=== PATIENT | male | born 1940 ===

== ENCOUNTER 2016-07-11 10:19 | Inpatient (IN) | payer MEDICARE, OTHER ==
[2016-07-11 11:23] LABS: RBC URINE 4 /hpf (0-3); URINE BACTERIA RARE (<OCC); URINE BILIRUBIN NEGATIVE (NEGATIVE); URINE BLOOD 1+ (NEGATIVE); URINE COLOR Amber (YELLOW); URINE GLUCOSE (UA) NORMAL (Normal); URINE KETONE NEGATIVE (NEGATIVE); URINE LEUKOCYTE ESTERASE 3+ Leu/uL (Negative); URINE PROTEIN 1+ mg/dL (NEGATIVE); WBC URINE 289 /hpf (0-5)
[2016-07-11] MEDS ORDERED: cefTRIAXone IV 1 gm in Dextros 50 ML IV ONE (11:27)
--- NOTE | 2016-07-11 11:45 | RAD ---
PROCEDURE: CHEST RADIOGRAPH, 1 VIEW HISTORY: Abdominal pain COMPARISON: None available. FINDINGS: LUNGS: Mild venous congestion. Patchy increased markings at the left lung base. Right paratracheal opacity may represent prominent vasculature. Biapical pleural thickening with upper lobe granulomatous changes. Few small nodular densities in the left upper to mid lung zone may represent vessels on end. PLEURA: No pneumothorax or pleural fluid seen. CARDIOVASCULAR: Normal. OSSEOUS STRUCTURES: No significant abnormalities. VISUALIZED UPPER ABDOMEN: Normal. OTHER FINDINGS: None. IMPRESSION: Mild venous congestion. Patchy increased markings at the left lung base. Right paratracheal opacity may represent prominent vasculature. Biapical pleural thickening with upper lobe granulomatous changes. Few small nodular densities in the left upper to mid lung zone may represent vessels on end.
[2016-07-11 12:01] LABS: BASO % 0.2 % (0.0-2.0); HEMATOCRIT 43.9 % (35.0-51.0); LYMPH # 1.3 K/uL (1.0-4.3); LYMPH % 7.8 % (20.0-40.0); MEAN CELL VOLUME 99.4 fL (80.0-94.0); MEAN CORPUSCULAR HEMOGLOBIN 32.8 pg (27.0-31.0); MEAN PLATELET VOLUME 11.1 fL (7.2-11.7); MONO # 0.9 K/uL (0.0-0.8); MONO % 5.5 % (0.0-10.0); PLATELET COUNT 159 K/uL (130-400); RED CELL DISTRIBUTION WIDTH 13.7 % (11.5-14.5); WHITE BLOOD COUNT 16.1 K/uL (4.8-10.8)
[2016-07-11 12:07] LABS: POTASSIUM 4.7 mmol/L (3.6-5.2)
[2016-07-11 12:09] LABS: ALB/GLOB RATIO 0.9 (1.0-2.1); BILIRUBIN,TOTAL 2.4 mg/dL (0.2-1.3); TOTAL PROTEIN 8.3 g/dL (6.3-8.3)
--- NOTE | 2016-07-11 12:09 | C.PDOC ---
History Of Present Illness 75 yr old male presents to the ER with complaints of foul smelling urine and fever for the last week. Patient states today he was unable to walk due to weakness. Patient denies fever, chills, nausea, vomiting, abdominal pain, diarrhea, dysuria, weakness or numbness. Time Seen by Provider: 07/11/16 11:02 Chief Complaint (Nursing): Male Genitourinary History Per: Patient History/Exam Limitations: no limitations Onset/Duration Of Symptoms: Days (1 week) Current Symptoms Are (Timing): Still Present Past Medical History Reviewed: Historical Data, Nursing Documentation, Vital Signs Vital Signs: Last Vital Signs Temp 98.1 F 07/11/16 10:22 Pulse 91 H 07/11/16 10:22 Resp 18 07/11/16 10:22 BP 121/70 07/11/16 10:22 Pulse Ox 96 07/11/16 12:11 - Medical History PMH: HTN, Hyperlipidemia Family History: States: No Known Family Hx - Social History Hx Alcohol Use: Yes Hx Substance Use: No - Immunization History Hx Tetanus Toxoid Vaccination: No Hx Influenza Vaccination: No Hx Pneumococcal Vaccination: No Review Of Systems Except As Marked, All Systems Reviewed And Found Negative. Constitutional: Negative for: Fever, Chills Gastrointestinal: Negative for: Nausea, Vomiting, Abdominal Pain, Diarrhea Genitourinary: Positive for: Other ((+) Foul smelling urine). Negative for: Dysuria Neurological: Negative for: Weakness, Numbness Physical Exam - Physical Exam Appears: Well, Non-toxic, No Acute Distress Skin: Warm, Dry, No Rash Head: Atraumatic, Normacephalic Oral Mucosa: Dry Chest: Symmetrical, No Tenderness Cardiovascular: Rhythm Regular, No Murmur Gastrointestinal/Abdominal: Normal Exam, Soft, No Tenderness, No Guarding Back: Normal Inspection, No CVA Tenderness Extremity: Normal ROM, No Swelling Neurological/Psych: Oriented x3, Normal Speech, Normal Motor ED Course And Treatment - Laboratory Results Result Diagrams: 07/11/16 11:52 07/11/16 11:52 Lab Interpretation: Abnormal (UA, 289 WBC's, lipase 484 H) ECG: Interpreted By Me ECG Rhythm: Sinus Rhythm, R BBB ECG Interpretation: Normal Rate From EC O2 Sat by Pulse Oximetry: 96 - Radiology CXR: Interpreted by Me CXR Interpretation: Yes: No Acute Disease - Other Rad CXR X-Ray: Viewed By Me, Read By Radiologist Interpretation: PROCEDURE: CHEST RADIOGRAPH, 1 VIEW. HISTORY: Abdominal pain. COMPARISON: None available. FINDINGS: LUNGS: Mild venous congestion. Patchy increased markings at the left lung base. Right paratracheal opacity may represent prominent vasculature. Biapical pleural thickening with upper lobe granulomatous changes. Few small nodular densities in the left upper to mid lung zone may represent vessels on end. PLEURA: No pneumothorax or pleural fluid seen. CARDIOVASCULAR: Normal. OSSEOUS STRUCTURES: No significant abnormalities. VISUALIZED UPPER ABDOMEN: Normal. OTHER FINDINGS: None. IMPRESSION: Mild venous congestion. Patchy increased markings at the left lung base. Right paratracheal opacity may represent prominent vasculature. Biapical pleural thickening with upper lobe granulomatous changes. Few small nodular densities in the left upper to mid lung zone may represent vessels on end. Reevaluation Time: 12:32 Reassessment Condition: Improved - Physician Consult Information Outcome Of Conversation: 1230: dw Dr. Flores- HOspitalist covering pt's for Dr. Kesha Pastrana- ok to Obs. Medical Decision Making Medical Decision Making: PLAN: * CXR * EKG * CBC * Urinalysis * Rocephin IV Disposition Doctor Will See Patient In The: Hospital Counseled Patient/Family Regarding: Studies Performed, Diagnosis - Disposition Disposition: HOSPITALIZED Disposition Time: 12:33 Condition: GOOD - Clinical Impression Clinical Impression: Pyelonephritis - Scribe Statement The provider has reviewed the documentation as recorded by the Lisa Paris Provider Attestation: All medical record entries made by the Lisa were at my direction and personally dictated by me. I have reviewed the chart and agree that the record accurately reflects my personal performance of the history, physical exam, medical decision making, and the department course for this patient. I have also personally directed, reviewed, and agree with the discharge instructions and disposition.
[2016-07-11 12:10] LABS: CALCIUM 9.6 mg/dl (8.6-10.4)
[2016-07-11] MEDS ORDERED: Sodium Chloride 0.9% 1,000 ML IV ONE (12:22)
[2016-07-11] MEDS ORDERED: cefTRIAXone IV 1 gm in Dextros 50 ML IVPB ONE (12:41)
[2016-07-11 12:56] LABS: BASOPHIL 1 % (0-2); NEUTROPHIL 79 % (50-75); TOTAL CELLS COUNTED 100
[2016-07-11 12:57] LABS: LARGE PLATELETS PRESENT
[2016-07-11] MEDS ORDERED: Sodium Chloride 0.9% 1,000 ML IV SCH (14:30)
[2016-07-11] MEDS: Sodium Chloride 0.9% 1,000 ML IV SCH (14:51)
[2016-07-11] MEDS ORDERED: (Novolog) Insulin Aspart, Recombinant 100 u/ml 10 ml vial SC SCH (16:30)
--- NOTE | 2016-07-11 18:32 | CP.PCM.HP ---
<Valeria Vail - Last Filed: 07/11/16 18:29> History of Present Illness - History of Present Illness History of Present Illness: CC: "increased urinary frequency and fever" HPI: Patient is a 75 year old male with past medical history of hypertension , hyperlipidemia, and diabetes mellitus who presents to the ED with dysuria and fever. Patient states symptoms started 1 week ago and include dysuria, foul smelling urine, increased urgency and frequency, fever/chills, and nausea/ vomiting. Patient states fever fluctuated, highest of 103F. Patient states he took acetaminophen for fever which provided relief. Patient states he has been nauseous all week and has had clear liquid emesis every morning for past week. Last vomiting episode was yesterday. Patient states he has been feeling progressively weak over the past 7 days, unable to walk for more than a few minutes at a time. Patient complains of decreased appetite over the same time span. Patient denies headache, dizziness, vision change, shortness of breath, palpitations, chest pain, abdominal pain, hematuria, constipation, diarrhea, and lower extremity swelling. PMD: Dr. Pastrana PMHx: HTN, HLD, DM, thrombocytopenia Meds: losartan/HCTZ 100mg, amlodipine 5mg, metformin 500mg BID Allergies: NDKA PSHx: denies Hospitalizations: denies Social: retired, [facility] [place] [facility] , denies ever tobacco use, drinks 2, 24-oz beers and 2-3 shots rum per day. Last drink was 1 week ago. Denies withdrawal symptoms Present on Admission - Present on Admission Any Indicators Present on Admission: No History of DVT/PE: No History of Uncontrolled Diabetes: No Urinary Catheter: No Decubitus Ulcer Present: No Review of Systems - Constitutional Constitutional: Fever, Weakness. absent: Chills, Headache, Increased Appetite - EENT Eyes: absent: Blurred Vision, Change in Vision Ears: absent: Decreased Hearing, Ear Discharge Nose/Mouth/Throat: absent: Nasal Congestion, Nasal Discharge - Cardiovascular Cardiovascular: absent: Chest Pain, Chest Pain at Rest, Dyspnea, Leg Edema, Palpitations - Respiratory Respiratory: absent: Cough, Hemoptysis, Dyspnea on Exertion, Chest Congestion - Gastrointestinal Gastrointestinal: Nausea, Vomiting. absent: Abdominal Pain, Diarrhea, Dysphagia , Hematochezia, Melena - Genitourinary Genitourinary: Dysuria, Urinary Frequency, Urinary Urgency. absent: Freq UTI, Hx /Renal Surgery - Musculoskeletal Musculoskeletal: absent: Back Pain, Muscle Cramps - Integumentary Integumentary: absent: New Lesions, Rash - Neurological Neurological: Weakness. absent: Dizziness, Numbness - Psychiatric Psychiatric: absent: Anxiety, Depression Past Patient History - Past Social History Smoking Status: Never Smoked - CARDIAC Hx Hypertension: Yes - ENDOCRINE/METABOLIC Hx Diabetes Mellitus Type 2: Yes - HEMATOLOGICAL/ONCOLOGICAL Other/Comment: [place] - PSYCHIATRIC Hx Substance Use: No - SURGICAL HISTORY Hx Surgeries: No - ANESTHESIA Hx Anesthesia: No Meds Allergies/Adverse Reactions: Allergies Allergy/AdvReac Type Severity Reaction Status Date / Time No Known Allergies Allergy Verified 07/11/16 10:24 Physical Exam - Constitutional Appears: Non-toxic, No Acute Distress - Head Exam Head Exam: ATRAUMATIC, NORMAL INSPECTION, NORMOCEPHALIC - Eye Exam Eye Exam: EOMI, PERRL Additional comments: arcus sinelis present - ENT Exam ENT Exam: Mucous Membranes Dry - Neck Exam Neck exam: Positive for: Full Rom, Normal Inspection - Respiratory Exam Respiratory Exam: Clear to Auscultation Bilateral, NORMAL BREATHING PATTERN. absent: Rales, Rhonchi, Wheezes - Cardiovascular Exam Cardiovascular Exam: +S1, +S2. absent: Tachycardia - GI/Abdominal Exam GI & Abdominal Exam: Hyperactive Bowel Sounds, Organomegaly, Soft. absent: Distended, Firm Additional comments: hepatomegaly - Extremities Exam Extremities exam: Positive for: normal inspection, pedal pulses present. Negative for: pedal edema, tenderness - Back Exam Back exam: NORMAL INSPECTION. absent: CVA tenderness (L), CVA tenderness (R), paraspinal tenderness - Neurological Exam Neurological exam: Alert, CN II-XII Intact, Oriented x3 - Psychiatric Exam Psychiatric exam: Normal Affect, Normal Mood - Skin Additional comments: jaundiced Results - Vital Signs Recent Vital Signs: Last Vital Signs Temp 99.5 F 07/11/16 17:47 Pulse 85 07/11/16 17:47 Resp 20 07/11/16 17:47 BP 144/73 07/11/16 17:47 Pulse Ox 95 07/11/16 17:47 - Labs Result Diagrams: 07/11/16 11:52 07/11/16 11:52 Labs: Laboratory Results - last 24 hr 07/11/16 07/11/16 16:28 17:31 POC Glucose (mg/dL) 235 H Hepatitis A IgM Ab Negative Hep Bs Antigen Negative Hep B Core IgM Ab Negative Assessment & Plan - Assessment and Plan (Free Text) Assessment: Cystitis Dysuria, fever/chills x 1 week CVA tenderness absent on physical exam - pyelonephritis unlikely WBC 16.1, 86.6% neutrophils, Band Neutrophils 8 UA: positive nitrates, 3+ leuokocyte esterase, 289 WBC, 4 RBC Blood culture ordered Urine culture ordered Renal ultrasound ordered PSA ordered Ceftriaxone 1gm IVPB given in ED - will continue Normal Saline IV @100cc Urology , Dr. Perales, consulted - help appreciated KENDRA BUN/CR: 50/1.8 IV fluids Monitor Hepatomegaly history of alcohol use f/u Abdominal Ultrasound f/u LFTs Hepatitis panel - negative Coagulation profile ordered Elevated Lipase Lipase 484 Will monitor Hypertension Normotensive Continue home meds- Losartan 100mg po daily HCTZ 12.5mg po daily Amlodipine 5mg po daily Will monitor Diabetes Mellitus Metformin 500mg BID on hold to r/o renal etiology Started Novolog 3 units SC TIDAC and Lantus 9 units SC HS Accucheks ordered f/u Hemoglobin A1c Hyperlipidemia Lipid panel ordered Consider statin Prophylaxis Heparin 5000 SC Q12 SCD Pepcid 20 mg po daily - Date & Time Date: 07/11/16 Time: 18:49 <Jignesh Montgomery - Last Filed: 07/12/16 08:52> Results - Vital Signs Recent Vital Signs: Last Vital Signs Temp 98.0 F 07/12/16 08:39 Pulse 69 07/12/16 08:39 Resp 20 07/12/16 08:39 BP 130/67 07/12/16 08:39 Pulse Ox 97 07/12/16 08:39 - Labs Result Diagrams: 07/12/16 06:20 07/12/16 06:20 Labs: Laboratory Results - last 24 hr 07/11/16 07/11/16 07/11/16 16:28 17:31 19:47 WBC RBC Hgb Hct MCV MCH MCHC RDW Plt Count MPV Neut % (Auto) Lymph % (Auto) Kem[place] % (Auto) Eos % (Auto) Baso % (Auto) Neut # Lymph # Kemper # Eos # Baso # Neutrophils % (Manual) Band Neutrophils % Lymphocytes % (Manual) Monocytes % (Manual) Platelet Estimate RBC Morphology PT INR APTT Sodium Potassium Chloride Carbon Dioxide Anion Gap BUN Creatinine Est GFR ( Amer) Est GFR (Non-Af Amer) POC Glucose (mg/dL) 235 H Random Glucose Hemoglobin A1c Calcium Magnesium Total Bilirubin AST ALT Alkaline Phosphatase Total Protein Albumin Globulin Albumin/Globulin Ratio Triglycerides Cholesterol LDL Cholesterol Direct HDL Cholesterol Prostate Specific Ag 10.9 H Hepatitis A IgM Ab Negative Hep Bs Antigen Negative Hep B Core IgM Ab Negative Hepatitis C Antibody Negative 07/11/16 07/12/16 07/12/16 21:23 06:20 06:20 WBC RBC Hgb Hct MCV MCH MCHC RDW Plt Count MPV Neut % (Auto) Lymph % (Auto) [place] % (Auto) Eos % (Auto) Baso % (Auto) Neut # Lymph # Kem[place] # Eos # Baso # Neutrophils % (Manual) Band Neutrophils % Lymphocytes % (Manual) Monocytes % (Manual) Platelet Estimate RBC Morphology PT 15.3 H INR 1.4 APTT 28 Sodium 137 Potassium 4.0 Chloride 103 Carbon Dioxide 22 Anion Gap 17 BUN 39 H Creatinine 1.3 Est GFR ( Amer) > 60 Est GFR (Non-Af Amer) 54 POC Glucose (mg/dL) 217 H Random Glucose 157 H Hemoglobin A1c Calcium 8.3 L Magnesium 2.3 Total Bilirubin 2.0 H AST 50 ALT 49 Alkaline Phosphatase 139 H D Total Protein 6.4 Albumin 3.0 L D Globulin 3.4 Albumin/Globulin Ratio 0.9 L Triglycerides 134 Cholesterol 125 LDL Cholesterol Direct 59 HDL Cholesterol 20 L Prostate Specific Ag Hepatitis A IgM Ab Hep Bs Antigen Hep B Core IgM Ab Hepatitis C Antibody 07/12/16 07/12/16 07/12/16 06:20 06:20 07:03 WBC 16.1 H RBC 3.67 L Hgb 12.2 D Hct 35.8 MCV 97.5 H MCH 33.1 H MCHC 34.0 RDW 13.5 Plt Count 140 MPV 10.9 Neut % (Auto) 85.3 H Lymph % (Auto) 8.1 L Kemper % (Auto) 6.3 Eos % (Auto) 0.1 Baso % (Auto) 0.2 Neut # 13.7 H Lymph # 1.3 Kemper # 1.0 H Eos # 0.0 Baso # 0.0 Neutrophils % (Manual) 81 H Band Neutrophils % 5 H Lymphocytes % (Manual) 8 L Monocytes % (Manual) 6 Platelet Estimate Normal RBC Morphology Normal PT INR APTT Sodium Potassium Chloride Carbon Dioxide Anion Gap BUN Creatinine Est GFR ( Amer) Est GFR (Non-Af Amer) POC Glucose (mg/dL) 166 H Random Glucose Hemoglobin A1c 6.3 Calcium Magnesium Total Bilirubin AST ALT Alkaline Phosphatase Total Protein Albumin Globulin Albumin/Globulin Ratio Triglycerides Cholesterol LDL Cholesterol Direct HDL Cholesterol Prostate Specific Ag Hepatitis A IgM Ab Hep Bs Antigen Hep B Core IgM Ab Hepatitis C Antibody Attending/Attestation - Attestation I have personally seen and examined this patient.: Yes I have fully participated in the care of the patient.: Yes I have reviewed all pertinent clinical information: Yes Notes (Text): 07/12/16 08:50 Patient was seen and examined at bedside with the resident at the time of admission Patient started on IV antibiotics with Rocephin for treatment for UTI/cystitis We will obtain a renal US to rule out any obstruction. We will also request urology evaluation. I discussed the plan of care with the resident and agree with the above history and physical and assessment/plan by the resident.
[2016-07-11] MEDS: (Lantus) Insulin Glargine, Recombinant SC SCH (21:35)
[2016-07-12] MEDS: Sodium Chloride 0.9% 1,000 ML IV SCH ×3 (00:39→21:11)
[2016-07-12 06:44] LABS: BASO % 0.2 % (0.0-2.0); EOS % 0.1 % (0.0-4.0); HEMATOCRIT 35.8 % (35.0-51.0); INR 1.4; LYMPH # 1.3 K/uL (1.0-4.3); LYMPH % 8.1 % (20.0-40.0); MEAN CELL VOLUME 97.5 fL (80.0-94.0); MEAN CORPUSCULAR HEMOGLOBIN 33.1 pg (27.0-31.0); MEAN PLATELET VOLUME 10.9 fL (7.2-11.7); MONO % 6.3 % (0.0-10.0); PLATELET COUNT 140 K/uL (130-400); RED CELL DISTRIBUTION WIDTH 13.5 % (11.5-14.5); WHITE BLOOD COUNT 16.1 K/uL (4.8-10.8)
--- NOTE | 2016-07-12 07:19 | CP.PCM.PN ---
<Valeria Vail - Last Filed: 07/12/16 17:44> Subjective - Date & Time of Evaluation Date of Evaluation: 07/12/16 Time of Evaluation: 07:10 - Subjective Subjective: Patient seen and examined at bedside. Patient bacteremic, growing gram negative navjot. Patient given stat dose of Gentamicin IVPB and started on Zosyn IVPB q8h. He denies abdominal pain, flank pain and dysuria. Patient also denies fever, chills, shortness of breath, chest pain, nausea, vomiting, diarrhea and constipation. He is tolerating diet well. Gastroenterology consulted for workup of liver mass detected on abdominal ultrasound. Objective - Vital Signs/Intake and Output Vital Signs (last 24 hours): Temp Pulse Resp BP Pulse Ox 98.6 F 74 20 134/66 96 07/12/16 00:00 07/12/16 00:00 07/12/16 00:00 07/12/16 00:00 07/12/16 00:00 Intake and Output: 07/12/16 07/12/16 06:59 18:59 Intake Total 950 Output Total 300 Balance 650 - Medications Medications: Current Medications Amlodipine Besylate (Norvasc) 5 mg PO DAILY [facility] Famotidine (Pepcid) 20 mg PO DAILY [facility] Heparin Sodium (Porcine) (Heparin) 5,000 units SC Q12 [facility] Last Admin: 07/11/16 21:31 Dose: 5,000 units Hydrochlorothiazide (Microzide) 12.5 mg PO DAILY [facility] Ceftriaxone Sodium (Rocephin Iv 1 Gm Duplex) 50 mls @ 100 mls/hr IVPB DAILY [facility] Sodium Chloride (Sodium Chloride 0.9%) 1,000 mls @ 100 mls/hr IV .Q10H [facility] Last Admin: 07/12/16 00:39 Dose: Not Given Insulin Aspart (Novolog) 3 unit SC TIDAC [facility] Last Admin: 07/11/16 17:00 Dose: Not Given Insulin Glargine (Lantus) 9 unit SC HS [facility] Last Admin: 07/11/16 21:35 Dose: 9 units Losartan Potassium (Cozaar) 100 mg PO DAILY [facility] Pneumococcal Polyvalent Vaccine (Pneumovax 23 Vaccine) 0.5 ml IM .ONCE ONE Stop: 07/13/16 10:01 - Labs Labs: 07/12/16 06:20 PT 15.3 SECONDS (9.7-12.2) H 07/12/16 06:20 INR 1.4 07/12/16 06:20 APTT 28 SECONDS (21-34) 07/12/16 06:20 - Constitutional Appears: Non-toxic, No Acute Distress - Head Exam Head Exam: ATRAUMATIC, NORMAL INSPECTION, NORMOCEPHALIC - Eye Exam Eye Exam: EOMI, PERRL Additional comments: arcus sinelis present - ENT Exam ENT Exam: Mucous Membranes Moist - Neck Exam Neck Exam: Full ROM, Normal Inspection - Respiratory Exam Respiratory Exam: Clear to Ausculation Bilateral, NORMAL BREATHING PATTERN. absent: Rales, Rhonchi, Wheezes - Cardiovascular Exam Cardiovascular Exam: +S1, +S2. absent: Tachycardia - GI/Abdominal Exam GI & Abdominal Exam: Soft, Normal Bowel Sounds. absent: Distended, Firm, Guarding, Tenderness - Extremities Exam Extremities Exam: Normal Inspection. absent: Pedal Edema, Tenderness - Back Exam Back Exam: NORMAL INSPECTION - Neurological Exam Neurological Exam: Alert, Awake, Oriented x3 - Psychiatric Exam Psychiatric exam: Normal Affect, Normal Mood - Skin Additional comments: jaundiced Assessment and Plan - Assessment and Plan (Free Text) Assessment: Cystitis Afebrile overnight WBC remains stable at 16.1, 85.3% neutrophils, Band Neutrophils 8 UA: positive nitrates, 3+ leuokocyte esterase, 289 WBC, 4 RBC Urine Culture: Gram negative navjot Blood culture growing gram negative navjot PSA elevated 10.9. Per Dr. Perales, patient will require follow-up in his office within 2 weeks following discharge from hospital to have PSA rechecked. discontinued Rocephin Patient given Gentamicin 350 mg IVPB once stat and started on Zosyn 3.375 gm IVPB q8h ID, Dr. Metcalf, consulted. Help appreciated. Will follow-up recommendations. Normal Saline IV @100cc Urology , Dr. 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 No hepatomegaly. 3.0 cm hypoechoic solid mass in right lobe of liver suspicious for hepatocellular neoplasm. GI, Dr. Colvin, consulted. Will follow-up AFP, autoimmune serologies, GGT, and fractionate bilirubin ordered by GI. Recommends triple phase CT of liver, possibly tomorrow if CR improves. Patient instructed to have bring results of EGD/colonoscopy for review. Total bilirubin 2.0, ALK Phos 139, Albumin 0.9 AST/ALT: 50/49 Hepatitis panel - negative Platelets 140 Coagulation profile: PT/PTT: 15.3/28, INR 1.4 Elevated Lipase Lipase 484 Will monitor Hypertension Normotensive Continue home meds- Losartan 100mg po daily HCTZ 12.5mg po daily Amlodipine 5mg po daily Will monitor Diabetes Mellitus Hemoglobin a1c 6.3 Metformin 500mg BID on hold to r/o renal etiology Increase Novolog 5 units SC TIDAC and Lantus 9 units SC HS Accucheks ordered f/u Hemoglobin A1c Hyperlipidemia Lipid panel: normal, however, low HDL of 20 Start Lovaza 1 gm po BID Prophylaxis Heparin 5000 SC Q12 SCD Pepcid 20 mg po daily <Jignesh Montgomery - Last Filed: 07/13/16 08:09> Objective - Vital Signs/Intake and Output Vital Signs (last 24 hours): Temp Pulse Resp BP Pulse Ox 99.2 F 70 20 125/61 95 07/13/16 00:00 07/13/16 00:00 07/13/16 00:00 07/13/16 00:00 07/13/16 00:00 Intake and Output: 07/13/16 07/13/16 06:59 18:59 Intake Total 2100 Output Total 450 Balance 1650 - Medications Medications: Current Medications Amlodipine Besylate (Norvasc) 5 mg PO DAILY [facility] Last Admin: 07/12/16 09:19 Dose: 5 mg Famotidine (Pepcid) 20 mg PO DAILY [facility] Last Admin: 07/12/16 09:20 Dose: 20 mg Heparin Sodium (Porcine) (Heparin) 5,000 units SC Q12 [facility] Last Admin: 07/12/16 21:08 Dose: 5,000 units Hydrochlorothiazide (Microzide) 12.5 mg PO DAILY [facility] Last Admin: 07/12/16 09:20 Dose: 12.5 mg Sodium Chloride (Sodium Chloride 0.9%) 1,000 mls @ 100 mls/hr IV .Q10H [facility] Last Admin: 07/13/16 07:45 Dose: Not Given Piperacillin Sod/Tazobactam Sod (Zosyn 3.375 Gm Iv Premix) 3.375 gm in 50 mls @ 100 mls/hr IVPB Q8H [facility] Last Admin: 07/13/16 08:05 Dose: 100 mls/hr Insulin Aspart (Novolog) 5 unit SC TIDAC [facility] Last Admin: 07/13/16 08:05 Dose: 5 unit Insulin Glargine (Lantus) 9 unit SC HS [facility] Last Admin: 07/12/16 21:09 Dose: 9 units Losartan Potassium (Cozaar) 100 mg PO DAILY [facility] Last Admin: 07/12/16 09:20 Dose: 100 mg [id number] Ethyl Esters (Lovaza) 1 gm PO BID [facility] Pneumococcal Polyvalent Vaccine (Pneumovax 23 Vaccine) 0.5 ml IM .ONCE ONE Stop: 07/13/16 10:01 - Labs Labs: 07/13/16 06:31 07/13/16 06:31 PT 15.3 SECONDS (9.7-12.2) H 07/12/16 06:20 INR 1.4 07/12/16 06:20 APTT 28 SECONDS (21-34) 07/12/16 06:20 Attending/Attestation - Attestation I have personally seen and examined this patient.: Yes I have fully participated in the care of the patient.: Yes I have reviewed all pertinent clinical information, including history, physical exam and plan: Yes Notes (Text): 07/13/16 08:07 Patient was seen and examined at bedside with the resident Patient appears comfortable. Denies any dysuria. Labs noted. Patient has gram-negative rods in the blood cultures. Started on Zosyn and gentamicin We will request infectious consultation Patient also found to have lesion on the liver. We will request a GI evaluation. I discussed the plan of care with the resident and I agree with the above history and physical and assessment/plan by the resident.
[2016-07-12 07:21] LABS: CHLORIDE 103 mmol/L (98-107)
[2016-07-12 07:22] LABS: SODIUM 137 mmol/L (132-148)
[2016-07-12 07:24] LABS: ALB/GLOB RATIO 0.9 (1.0-2.1); ALKALINE PHOSPHATASE 139 U/L (38-126); AST/SGOT 50 U/L (17-59); BLOOD UREA NITROGEN 39 mg/dL (9-20); CARBON DIOXIDE 22 mmol/L (22-30); CHOLESTEROL 125 mg/dL (0-199); GFR AFRICAN-AMERICAN > 60; GLUCOSE,RANDOM 157 mg/dL (75-110); TOTAL PROTEIN 6.4 g/dL (6.3-8.3)
[2016-07-12 07:25] LABS: ALT/SGPT 49 U/L (21-72); CALCIUM 8.3 mg/dl (8.6-10.4); MAGNESIUM 2.3 mg/dL (1.6-2.3)
[2016-07-12 08:34] LABS: NEUTROPHIL 81 % (50-75); TOTAL CELLS COUNTED 100
[2016-07-12] MEDS: (Novolog) Insulin Aspart, Recombinant 100 u/ml 10 ml vial SC SCH ×3 (09:00→16:54)
[2016-07-12] MEDS ORDERED: cefTRIAXone IV 1 gm in Dextros 50 ML IVPB SCH (10:00)
--- NOTE | 2016-07-12 10:29 | US ---
HISTORY: hepatomegaly COMPARISON: None. TECHNIQUE: Sonographic evaluation of the abdomen. FINDINGS: LIVER: Measures 17.4 cm. Upper limits normal size. Nodular contour. Heterogeneous echotexture. Normal echogenicity. Hypoechoic solid mass in right lobe of liver, 2.8 x 2.1 x 3.0 cm. Further evaluation with multiphasic contrast enhanced CT examination of the abdomen is advised. No intrahepatic biliary dilatation. GALLBLADDER: Cholelithiasis. No mural thickening. No pericholecystic fluid. COMMON BILE DUCT: Measures 5 mm. No stones. No dilatation. PANCREAS: Unremarkable as visualized. No mass. No ductal dilatation. RIGHT KIDNEY: Measures 11.9cm. Normal echogenicity. No calculus. Simple cyst mid right kidney, 1.7 x 1.8 x 2.0 cm. No hydronephrosis. LEFT KIDNEY: Measures 12.6cm. Normal echogenicity. No calculus, mass, or hydronephrosis. SPLEEN: Normal in size and contour. No mass. AORTA: No aneurysmal dilatation. IVC: Unremarkable. OTHER FINDINGS: None. 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 No hepatomegaly. 3.0 cm hypoechoic solid mass in right lobe of liver. This is suspicious for hepatocellular neoplasm. Further evaluation with multiphasic contrast enhanced CT examination is advised. Cholelithiasis without evidence of cholecystitis. 2 cm simple mid right renal cortical cyst.
--- NOTE | 2016-07-12 12:03 | CARD ---
APPROVED REPORT EKG Measurement Heart [id number] <Conclusion> Normal sinus rhythm Incomplete right bundle branch block Moderate voltage criteria for LVH, may be normal variant Borderline ECG
--- NOTE | 2016-07-12 13:03 | CP.PCM.CON ---
History of Present Illness - History of Present Illness History of Present Illness: Asked for a GI consultation on this patient HPI: This is a 75 year old male with h/o HTN, DM, HL who presents with 1 week of fever and dysuria. We are consulted for evaluation of abnormal ultrasound showing hepatic mass. The patient reports 1 week of fever associated with burning urination. He also describes intermittent flank pain for the past several months. He has had diminished appetite over the past 1 week, but denies any abdominal pain, nausea or vomiting. He has been more constipated over the past few months, described as hard, less frequent stools. He denies any history of hematemesis, confusion, rectal bleeding/melena/hematochezia. He reports having an EGD/colonoscopy roughly 1 year ago, but does not recall results. He does admit to daily ETOH (usually 2 24oz of beer with shots of rum in addition, for >40 years). He denies any prior history of liver disease or FH of liver disorder. PMHx/PSHx: HTN, HLD, DM, no prior surgeries Meds: losartan/HCTZ 100mg, amlodipine 5mg, metformin 500mg BID Allergies: NDKA SH: denies ever tobacco use, ETOH as above, no illicit drug use FH: mother with esophageal cancer Review of Systems - Constitutional Constitutional: Chills, Fever, Weakness - Cardiovascular Cardiovascular: absent: Chest Pain - Respiratory Respiratory: absent: Cough, Dyspnea - Gastrointestinal Gastrointestinal: As Per HPI - Genitourinary Genitourinary: absent: Difficulty Urinating, Dysuria - Musculoskeletal Musculoskeletal: Back Pain - Integumentary Integumentary: absent: Pruritus, Rash - Neurological Neurological: Weakness. absent: Dizziness - Psychiatric Psychiatric: absent: Anxiety - Endocrine Endocrine: Fatigue Past Patient History - Past Medical History & Family History Past Medical History?: Yes - Past Social History Smoking Status: Never Smoked - CARDIAC Hx Hypertension: Yes - ENDOCRINE/METABOLIC Hx Diabetes Mellitus Type 2: Yes - HEMATOLOGICAL/ONCOLOGICAL Other/Comment: [place] - MUSCULOSKELETAL/RHEUMATOLOGICAL Hx Falls: No - PSYCHIATRIC Hx Substance Use: No - SURGICAL HISTORY Hx Surgeries: No - ANESTHESIA Hx Anesthesia: No Meds Allergies/Adverse Reactions: Allergies Allergy/AdvReac Type Severity Reaction Status Date / Time No Known Allergies Allergy Verified 07/11/16 10:24 - Medications Medications: Current Medications Amlodipine Besylate (Norvasc) 5 mg PO DAILY [facility] Last Admin: 07/12/16 09:19 Dose: 5 mg Famotidine (Pepcid) 20 mg PO DAILY [facility] Last Admin: 07/12/16 09:20 Dose: 20 mg Heparin Sodium (Porcine) (Heparin) 5,000 units SC Q12 [facility] Last Admin: 07/12/16 09:19 Dose: 5,000 units Hydrochlorothiazide (Microzide) 12.5 mg PO DAILY [facility] Last Admin: 07/12/16 09:20 Dose: 12.5 mg Ceftriaxone Sodium (Rocephin Iv 1 Gm Duplex) 50 mls @ 100 mls/hr IVPB DAILY [facility] Last Admin: 07/12/16 09:20 Dose: 100 mls/hr Sodium Chloride (Sodium Chloride 0.9%) 1,000 mls @ 100 mls/hr IV .Q10H [facility] Last Admin: 07/12/16 11:30 Dose: 100 mls/hr Insulin Aspart (Novolog) 5 unit SC TIDAC [facility] Last Admin: 07/12/16 09:00 Dose: 5 unit Insulin Glargine (Lantus) 9 unit SC HS [facility] Last Admin: 07/11/16 21:35 Dose: 9 units Losartan Potassium (Cozaar) 100 mg PO DAILY [facility] Last Admin: 07/12/16 09:20 Dose: 100 mg Pneumococcal Polyvalent Vaccine (Pneumovax 23 Vaccine) 0.5 ml IM .ONCE ONE Stop: 07/13/16 10:01 Physical Exam - Constitutional Appears: No Acute Distress, Chronically Ill - Eye Exam Eye Exam: Scleral icterus - ENT Exam ENT Exam: Mucous Membranes Moist - Respiratory Exam Respiratory Exam: Clear to Auscultation Bilateral - Cardiovascular Exam Cardiovascular Exam: +S1, +S2 - GI/Abdominal Exam Additional comments: abdomen soft, non tender to palpation, no rebound or guarding, +hepatomegaly, bowel sounds present - Extremities Exam Extremities exam: Negative for: pedal edema - Neurological Exam Neurological exam: Alert, Oriented x3 - Skin Skin Exam: Dry Results - Vital Signs Recent Vital Signs: Last Vital Signs Temp 98.0 F 07/12/16 08:39 Pulse 69 07/12/16 08:39 Resp 20 07/12/16 08:39 BP 130/67 07/12/16 08:39 Pulse Ox 97 07/12/16 08:39 - Labs Result Diagrams: 07/12/16 06:20 07/12/16 06:20 Labs: Laboratory Results - last 24 hr 07/11/16 07/11/16 07/11/16 16:28 17:31 19:47 WBC RBC Hgb Hct MCV MCH MCHC RDW Plt Count MPV Neut % (Auto) Lymph % (Auto) [place] % (Auto) Eos % (Auto) Baso % (Auto) Neut # Lymph # [place] # Eos # Baso # Neutrophils % (Manual) Band Neutrophils % Lymphocytes % (Manual) Monocytes % (Manual) Platelet Estimate RBC Morphology PT INR APTT Sodium Potassium Chloride Carbon Dioxide Anion Gap BUN Creatinine Est GFR ( Amer) Est GFR (Non-Af Amer) POC Glucose (mg/dL) 235 H Random Glucose Hemoglobin A1c Calcium Magnesium Total Bilirubin AST ALT Alkaline Phosphatase Total Protein Albumin Globulin Albumin/Globulin Ratio Triglycerides Cholesterol LDL Cholesterol Direct HDL Cholesterol Prostate Specific Ag 10.9 H Hepatitis A IgM Ab Negative Hep Bs Antigen Negative Hep B Core IgM Ab Negative Hepatitis C Antibody Negative 07/11/16 07/12/16 07/12/16 21:23 06:20 06:20 WBC RBC Hgb Hct MCV MCH MCHC RDW Plt Count MPV Neut % (Auto) Lymph % (Auto) [place] % (Auto) Eos % (Auto) Baso % (Auto) Neut # Lymph # [place] # Eos # Baso # Neutrophils % (Manual) Band Neutrophils % Lymphocytes % (Manual) Monocytes % (Manual) Platelet Estimate RBC Morphology PT 15.3 H INR 1.4 APTT 28 Sodium 137 Potassium 4.0 Chloride 103 Carbon Dioxide 22 Anion Gap 17 BUN 39 H Creatinine 1.3 Est GFR ( Amer) > 60 Est GFR (Non-Af Amer) 54 POC Glucose (mg/dL) 217 H Random Glucose 157 H Hemoglobin A1c Calcium 8.3 L Magnesium 2.3 Total Bilirubin 2.0 H AST 50 ALT 49 Alkaline Phosphatase 139 H D Total Protein 6.4 Albumin 3.0 L D Globulin 3.4 Albumin/Globulin Ratio 0.9 L Triglycerides 134 Cholesterol 125 LDL Cholesterol Direct 59 HDL Cholesterol 20 L Prostate Specific Ag Hepatitis A IgM Ab Hep Bs Antigen Hep B Core IgM Ab Hepatitis C Antibody 07/12/16 07/12/16 07/12/16 06:20 06:20 07:03 WBC 16.1 H RBC 3.67 L Hgb 12.2 D Hct 35.8 MCV 97.5 H MCH 33.1 H MCHC 34.0 RDW 13.5 Plt Count 140 MPV 10.9 Neut % (Auto) 85.3 H Lymph % (Auto) 8.1 L [place] % (Auto) 6.3 Eos % (Auto) 0.1 Baso % (Auto) 0.2 Neut # 13.7 H Lymph # 1.3 [place] # 1.0 H Eos # 0.0 Baso # 0.0 Neutrophils % (Manual) 81 H Band Neutrophils % 5 H Lymphocytes % (Manual) 8 L Monocytes % (Manual) 6 Platelet Estimate Normal RBC Morphology Normal PT INR APTT Sodium Potassium Chloride Carbon Dioxide Anion Gap BUN Creatinine Est GFR ( Amer) Est GFR (Non-Af Amer) POC Glucose (mg/dL) 166 H Random Glucose Hemoglobin A1c 6.3 Calcium Magnesium Total Bilirubin AST ALT Alkaline Phosphatase Total Protein Albumin Globulin Albumin/Globulin Ratio Triglycerides Cholesterol LDL Cholesterol Direct HDL Cholesterol Prostate Specific Ag Hepatitis A IgM Ab Hep Bs Antigen Hep B Core IgM Ab Hepatitis C Antibody 07/12/16 11:32 WBC RBC Hgb Hct MCV MCH MCHC RDW Plt Count MPV Neut % (Auto) Lymph % (Auto) [place] % (Auto) Eos % (Auto) Baso % (Auto) Neut # Lymph # [place] # Eos # Baso # Neutrophils % (Manual) Band Neutrophils % Lymphocytes % (Manual) Monocytes % (Manual) Platelet Estimate RBC Morphology PT INR APTT Sodium Potassium Chloride Carbon Dioxide Anion Gap BUN Creatinine Est GFR ( Amer) Est GFR (Non-Af Amer) POC Glucose (mg/dL) 189 H Random Glucose Hemoglobin A1c Calcium Magnesium Total Bilirubin AST ALT Alkaline Phosphatase Total Protein Albumin Globulin Albumin/Globulin Ratio Triglycerides Cholesterol LDL Cholesterol Direct HDL Cholesterol Prostate Specific Ag Hepatitis A IgM Ab Hep Bs Antigen Hep B Core IgM Ab Hepatitis C Antibody Assessment & Plan - Assessment and Plan (Free Text) Assessment: This is a 75 year old male with h/o HTN, DM, HL who is admitted with fever/ dysuria and UTI. He is found to have 3cm solid liver lesion on abdominal ultrasound with supporting history history of underlying cirrhosis (likely ETOH in etiology), so must r/o HCC. He has elevated T bili and INR 1.4 with hypoalbuminemia and thrombocytopenia suggestive of underlying portal hypertension. Plan: Continue antibiotic therapy for UTI as per primary medical service Follow up cultures Monitor leukocytosis, fever curve Monitor LFTs, hep panel negative Check autoimmune serologies, GGT, fractionate bilirubin Check serum AFP Patient will need triple phase CT of liver (his Cr was elevated on admission, unclear if KENDRA, but now improving), possibly tomorrow if Cr continues to improve He reportedly had EGD/colonoscopy within 1-2 years, so advised to bring in reports for review Will continue to follow and make recommendations pending clinical course
--- NOTE | 2016-07-12 15:03 | CON ---
DATE: 07/12/2016 TIME OF CONSULTATION: Roughly 2:08 p.m. BRIEF HISTORY: The patient is a 75-year-old male from [place], who was admitted for an initial diagnosis of pyelonephritis, but was found to have more cystitis than pyelonephritis. He den ies any history of any gross hematuria, renal colic, or abdominal pain. He initially had some interm ittent dysuria which has resolved on IV Rocephin during this hospital stay. The patient, however, wa s recently found to have a liver mass and is now being worked up for this pathology. He also was fou nd to have an elevated PSA during this hospital admission of 10.9 on 07/11/2016, but this was drawn du ring an episode of urosepsis and will have to be repeated in 1 month when his urosepsis is completely resolved. He denies any prior history of any kidney disease or kidney stones. No family history of prostate cancer. No prior surgical history. SOCIAL HISTORY: He is a social drinker and no history of any tobacco use. ALLERGIES: He has no known allergies to any medications. PHYSICAL EXAMINATION: VITAL SIGNS: Show a temperature of 98.0 today 07/12/2016. His pulse rate is 69, blood pressure is 13 0/67, his respiration rate is 20 and his O2 sat on nasal cannula is 97%. RECTAL: Showed a normal rectal tone without fluctuance or masses. Prostate was slightly enlarged, s mooth, symmetrical, nontender without nodules or indurations with a palpable median sulcus. GENITALIA: Testicles are down bilaterally, nontender, without masses. No inguinal hernias or lymph nodes are palpated. The patient was noncircumcised with normal glans meatus without any rashes or le sions visualized. LABORATORY EVALUATION: Today, 07/12/2016, shows an elevated WBC count of 16.1, hemoglobin of 12.2 and hematocrit of 33.1 with a platelet count of 140,000 indicating a mild anemia. His coag profile show s a PT of 15.3, which is elevated, INR of 1.4 and a PTT of 28. His chem profile today shows a sodium of 137, potassium 4.0, chloride 103, CO2 22, BUN and creatinine of 17 and 1.3 respectively with a GF R of 54, indicating chronic kidney disease stage III. His random glucose was 157. His hemoglobin A1 c is 6.3. His magnesium level was 2.3, total bilirubin was 2.0. His AST was 50 and his ALT was 49. His alkaline phosphatase is 139, which is elevated. His liver profile is relatively normal. His li pase was 484 on 07/11/2016, and his total PSA was 10.9 on 07/11/2016. His urinalysis on admission on showed the color was mohit, clarity was hazy, pH is 5.0, specific gravity 1.017, total prote in was 1+. Glucose was normal. Ketones were negative. Bilirubin was negative. Blood was 1+, nitri te was positive, leukocyte esterase was 3+ positive. There were 289 WBCs, 4 RBCs and rare bacteria p er power field. His hepatitis profile was negative. His urine culture showed gram-negative rods. T he patient is currently on IV Rocephin 1 gram daily. Chest x-ray on admission showed patchy increase d markings at the left lung base, right paratracheal opacity which may represent prominent vasculatur e by apical pleural thickening with upper lobe granulomatous changes. Few small nodular densities in the left upper to mid lung zone, which may represent vessels on it. No pneumothorax or pleural flui d seen. Cardiovascular silhouette was normal. Abdominal ultrasound done on 07/11/2016 showed a hypoe choic solid mass in the right lobe of the liver measuring 2.8 x 2.1 x 3.0 cm and further evaluation w ith multiphasic contrast enhanced CT of the abdomen is advised. No intrahepatic bilirubin dilatation . Gallbladder shows cholelithiasis and common bile duct measures 5 mm. No stones, no dilatation. P ancreas was unremarkable. No mass. No ductal dilatation. The right kidney showed a simple mid righ t renal cyst measuring 1.7 x 1.8 x 2.0 cm. No hydronephrosis. Left kidney shows normal echogenicity , no calculus. No mass or hydronephrosis. DIAGNOSTIC IMPRESSION: At this time is: 1. Urinary tract infection. 2. Elevated PSA. PLAN: Just to continue the patient on his IV antibiotic regimen, which currently includes Rocephin. The patient advised to follow up in the office regarding his elevated PSA of 10.9, which will be rep eated in about 1 month when his urosepsis is completely resolved. Dean Perales MD cc: [phone] TT: 07/12/2016 15:02:24 Confirmation # [id number] Dictation # [id number] rn
[2016-07-12] MEDS: Piperacill/Tazo 3.375gm in Dex 3.375 GM/50 ML BAG IVPB SCH ×2 (15:30→23:45)
[2016-07-12] MEDS ORDERED: SODIUM CHLORIDE 0.9% IVPB ONE (16:00)
[2016-07-12] MEDS ORDERED: GENTAMICIN IVPB ONE (16:00)
--- NOTE | 2016-07-12 19:10 | CP.PCM.CON ---
History of Present Illness - History of Present Illness History of Present Illness: 75 year old male with past medical history of hypertension, hyperlipidemia, and diabetes mellitus presents to the ED with dysuria and fever. Patient states symptoms started 1 week ago and include dysuria, foul smelling urine, increased urgency and frequency, fever/chills, and nausea/ vomiting.Patient states he has been feeling progressively weak over the past 7 days, found to have ? liver mass by US as well as possible cirrhosis PMHx: HTN, HLD, DM, thrombocytopenia Meds: losartan/HCTZ 100mg, amlodipine 5mg, metformin 500mg BID Allergies: NDKA PSHx: denies Social: retired, lives in [place] apartment with , denies ever tobacco use, drinks 2, 24-oz beers and 2-3 shots rum per day. Last drink was 1 week ago. Denies withdrawal symptoms Review of Systems - Constitutional Constitutional: As Per HPI, Anorexia, Fever, Malaise, Weakness - EENT Eyes: absent: As Per HPI, Blind Spots, Blurred Vision, Change in Vision, Decreased Night Vision, Diplopia, Discharge, Dry Eye, Exophthalmos, Floaters, Irritation, Itchy Eyes, Loss of Peripheral Vision, Pain, Photophobia, Requires Corrective Lenses, Sees Flashes, Spots in Vision, Tunnel Vision, Other Visual Disturbances, Loss of Vision, Other Ears: absent: As Per HPI, Decreased Hearing, Ear Discharge, Ear Pain, Tinnitus, Abnormal Hearing, Disequilibrium, Dizziness, Other Nose/Mouth/Throat: absent: As Per HPI, Epistaxis, Nasal Congestion, Nasal Discharge, Nasal Obstruction, Nasal Trauma, Nose Pain, Post Nasal Drip, Sinus Pain, Sinus Pressure, Bleeding Gums, Change in Voice, Dental Pain, Dry Mouth, Dysphagia, Halitosis, Hoarsness, Lip Swelling, Mouth Lesions, Mouth Pain, Odynophagia, Sore Throat, Throat Swelling, Tongue Swelling, Facial Pain, Neck Pain, Neck Mass, Other - Cardiovascular Cardiovascular: absent: As Per HPI, Acrocyanosis, Chest Pain, Chest Pain at Rest , Chest Pain with Activity, Claudication, Diaphoresis, Dyspnea, Dyspnea on Exertion, Edema, Irregular Heart Rhythm, Pain Radiating to Arm/Neck/Jaw, Leg Edema, Leg Ulcers, Lightheadedness, Orthopnea, Palpitations, Paroxysmal Nocturnal Dyspnea, Pedal Edema, Radiating Pain, Rapid Heart Rate, Slow Heart Rate, Syncope, Other - Respiratory Respiratory: absent: As Per HPI, Cough, Dyspnea, Hemoptysis, Dyspnea on Exertion , Wheezing, Snoring, Stridor, Pain on Inspiration, Chest Congestion, Excessive Mucous Production, Change in Mucous Color, Pain with Coughing, Other - Gastrointestinal Gastrointestinal: As Per HPI - Genitourinary Genitourinary: As Per HPI, Difficulty Urinating, Dysuria, Urinary Frequency - Musculoskeletal Musculoskeletal: absent: As Per HPI, Abnormal Gait, Arthralgias, Atrophy, Back Pain, Deformity, Joint Swelling, Limited Range of Motion, Loss of Height, Muscle Cramps, Muscle Weakness, Myalgias, Neck Pain, Numbness, Radiating Pain into Limb, Stiffness, Tingling, Other - Integumentary Integumentary: absent: As Per HPI, Acne, Alopecia, Bleeding Lesions, Change in Hair, Change in Nails, Change in Pigmentation, Changing Lesions, Dry Skin, Erythema, Furuncle, Hirsutism, Lesions, New Lesions, Non-Healing Lesions, Photosensitivity, Pruritus, Rash, Skin Pain, Skin Ulcer, Sores, Striae, Swelling , Unusual Bruising, Wounds, Jaundice, Other - Neurological Neurological: absent: As Per HPI, Abnormal Gait, Abnormal Hearing, Abnormal Movements, Abnormal Speech, Behavioral Changes, Burning Sensations, Confusion, Convulsions, Disequilibrium, Dizziness, Numbness, Focal Weakness, Frequent Falls , Headaches, Lack of Coordination, Loss of Vision, Memory Loss, Paresthesias, Radicular Pain, Restless Legs, Sensory Deficit, Syncope, Tingling, Tremor, Vertigo, Weakness, Other Visual Disturbances, Other - Psychiatric Psychiatric: absent: As Per HPI, Abnormal Sleep Pattern, Anhedonia, Anxiety, Auditory Hallucinations, Behavioral Changes, Change in Appetite, Change in Libido, Confusion, Depression, Difficulty Concentrating, Hallucinations, Homicidal Ideation, Hopelessness, Irritability, Memory Loss, Mood Swings, Panic Attacks, Paranoia, Suicidal Ideation, Visual Hallucinations, Tactile Hallucinations, Other - Endocrine Endocrine: absent: As Per HPI, Change in Body Appearance, Change in Libido, Cold Intolorance, Deepening of Voice, Excessive Sweating, Fatigue, Flushing, Heat Intolorance, Increase in Ring/Shoe/Hat Size, Palpitations, Polydipsia, Polyphagia, Polyuria, Other - Hematologic/Lymphatic Hematologic: absent: As Per HPI, Easy Bleeding, Easy Bruising, Lymphadenopathy, Other Past Patient History - Past Medical History & Family History Past Medical History?: Yes - Past Social History Smoking Status: Never Smoked - CARDIAC Hx Hypertension: Yes - ENDOCRINE/METABOLIC Hx Diabetes Mellitus Type 2: Yes - HEMATOLOGICAL/ONCOLOGICAL Other/Comment: [place] - MUSCULOSKELETAL/RHEUMATOLOGICAL Hx Falls: No - PSYCHIATRIC Hx Substance Use: No - SURGICAL HISTORY Hx Surgeries: No - ANESTHESIA Hx Anesthesia: No Meds Allergies/Adverse Reactions: Allergies Allergy/AdvReac Type Severity Reaction Status Date / Time No Known Allergies Allergy Verified 07/11/16 10:24 - Medications Medications: Current Medications Amlodipine Besylate (Norvasc) 5 mg PO DAILY [facility] Last Admin: 07/12/16 09:19 Dose: 5 mg Famotidine (Pepcid) 20 mg PO DAILY [facility] Last Admin: 07/12/16 09:20 Dose: 20 mg Heparin Sodium (Porcine) (Heparin) 5,000 units SC Q12 [facility] Last Admin: 07/12/16 09:19 Dose: 5,000 units Hydrochlorothiazide (Microzide) 12.5 mg PO DAILY [facility] Last Admin: 07/12/16 09:20 Dose: 12.5 mg Sodium Chloride (Sodium Chloride 0.9%) 1,000 mls @ 100 mls/hr IV .Q10H [facility] Last Admin: 07/12/16 11:30 Dose: 100 mls/hr Piperacillin Sod/Tazobactam Sod (Zosyn 3.375 Gm Iv Premix) 3.375 gm in 50 mls @ 100 mls/hr IVPB Q8H [facility] Insulin Aspart (Novolog) 5 unit SC TIDAC [facility] Last Admin: 07/12/16 16:54 Dose: 5 unit Insulin Glargine (Lantus) 9 unit SC HS [facility] Last Admin: 07/11/16 21:35 Dose: 9 units Losartan Potassium (Cozaar) 100 mg PO DAILY [facility] Last Admin: 07/12/16 09:20 Dose: 100 mg Qlesl-5-Rqxp Ethyl Esters (Lovaza) 1 gm PO BID [facility] Pneumococcal Polyvalent Vaccine (Pneumovax 23 Vaccine) 0.5 ml IM .ONCE ONE Stop: 07/13/16 10:01 Physical Exam - Constitutional Appears: No Acute Distress, Cachectic, Chronically Ill - Head Exam Head Exam: ATRAUMATIC, NORMAL INSPECTION, NORMOCEPHALIC - Eye Exam Eye Exam: EOMI, PERRL. absent: Scleral icterus - ENT Exam ENT Exam: Mucous Membranes Dry, Normal External Ear Exam - Neck Exam Neck exam: Negative for: Lymphadenopathy, Thyromegaly - Respiratory Exam Respiratory Exam: Decreased Breath Sounds, Rhonchi - Cardiovascular Exam Cardiovascular Exam: REGULAR RHYTHM, +S1, +S2 - GI/Abdominal Exam GI & Abdominal Exam: Diminished Bowel Sounds, Distended, Soft. absent: Guarding , Rebound, Rigid, Tenderness - Rectal Exam Rectal Exam: Deferred - Exam Exam: NORMAL INSPECTION - Extremities Exam Extremities exam: Positive for: pedal pulses present. Negative for: calf tenderness, pedal edema, tenderness - Back Exam Back exam: absent: CVA tenderness (L), CVA tenderness (R), paraspinal tenderness - Neurological Exam Neurological exam: Alert, CN II-XII Intact, Oriented x3, Reflexes Normal - Psychiatric Exam Psychiatric exam: Depressed - Skin Skin Exam: Dry, Intact Results - Vital Signs Recent Vital Signs: Last Vital Signs Temp 101.1 F H 07/12/16 16:00 Pulse 79 07/12/16 16:00 Resp 21 07/12/16 16:00 BP 123/69 07/12/16 16:00 Pulse Ox 94 L 07/12/16 16:00 - Labs Result Diagrams: 07/12/16 06:20 07/12/16 06:20 Labs: Laboratory Results - last 24 hr 07/11/16 07/11/16 07/12/16 19:47 21:23 06:20 WBC RBC Hgb Hct MCV MCH MCHC RDW Plt Count MPV Neut % (Auto) Lymph % (Auto) [place] % (Auto) Eos % (Auto) Baso % (Auto) Neut # Lymph # [place] # Eos # Baso # Neutrophils % (Manual) Band Neutrophils % Lymphocytes % (Manual) Monocytes % (Manual) Platelet Estimate RBC Morphology PT 15.3 H INR 1.4 APTT 28 Sodium Potassium Chloride Carbon Dioxide Anion Gap BUN Creatinine Est GFR ( Amer) Est GFR (Non-Af Amer) POC Glucose (mg/dL) 217 H Random Glucose Hemoglobin A1c Calcium Magnesium Total Bilirubin AST ALT Alkaline Phosphatase Total Protein Albumin Globulin Albumin/Globulin Ratio Triglycerides Cholesterol LDL Cholesterol Direct HDL Cholesterol Prostate Specific Ag 10.9 H 07/12/16 07/12/16 07/12/16 06:20 06:20 06:20 WBC 16.1 H RBC 3.67 L Hgb 12.2 D Hct 35.8 MCV 97.5 H MCH 33.1 H MCHC 34.0 RDW 13.5 Plt Count 140 MPV 10.9 Neut % (Auto) 85.3 H Lymph % (Auto) 8.1 L [place] % (Auto) 6.3 Eos % (Auto) 0.1 Baso % (Auto) 0.2 Neut # 13.7 H Lymph # 1.3 [place] # 1.0 H Eos # 0.0 Baso # 0.0 Neutrophils % (Manual) 81 H Band Neutrophils % 5 H Lymphocytes % (Manual) 8 L Monocytes % (Manual) 6 Platelet Estimate Normal RBC Morphology Normal PT INR APTT Sodium 137 Potassium 4.0 Chloride 103 Carbon Dioxide 22 Anion Gap 17 BUN 39 H Creatinine 1.3 Est GFR ( Amer) > 60 Est GFR (Non-Af Amer) 54 POC Glucose (mg/dL) Random Glucose 157 H Hemoglobin A1c 6.3 Calcium 8.3 L Magnesium 2.3 Total Bilirubin 2.0 H AST 50 ALT 49 Alkaline Phosphatase 139 H D Total Protein 6.4 Albumin 3.0 L D Globulin 3.4 Albumin/Globulin Ratio 0.9 L Triglycerides 134 Cholesterol 125 LDL Cholesterol Direct 59 HDL Cholesterol 20 L Prostate Specific Ag 07/12/16 07/12/16 07/12/16 07:03 11:32 16:39 WBC RBC Hgb Hct MCV MCH MCHC RDW Plt Count MPV Neut % (Auto) Lymph % (Auto) [place] % (Auto) Eos % (Auto) Baso % (Auto) Neut # Lymph # [place] # Eos # Baso # Neutrophils % (Manual) Band Neutrophils % Lymphocytes % (Manual) Monocytes % (Manual) Platelet Estimate RBC Morphology PT INR APTT Sodium Potassium Chloride Carbon Dioxide Anion Gap BUN Creatinine Est GFR ( Amer) Est GFR (Non-Af Amer) POC Glucose (mg/dL) 166 H 189 H 163 H Random Glucose Hemoglobin A1c Calcium Magnesium Total Bilirubin AST ALT Alkaline Phosphatase Total Protein Albumin Globulin Albumin/Globulin Ratio Triglycerides Cholesterol LDL Cholesterol Direct HDL Cholesterol Prostate Specific Ag Assessment & Plan (1) Bacteremia Status: Acute (2) Bacteremia Status: Acute (3) Pyelonephritis Status: Acute - Assessment and Plan (Free Text) Assessment: sepsis likely secondary to UTI r/o pneumonia possible cirrhosis r/o hepatocellular Ca On IV Zosyn pending ID of organism will need eval check PSA GI on board for liver mass
[2016-07-12] MEDS: (Lantus) Insulin Glargine, Recombinant SC SCH (21:09)
[2016-07-13] MEDS: Sodium Chloride 0.9% 1,000 ML IV SCH ×4 (01:00→21:47)
[2016-07-13 01:25] VITALS: RESP 20
[2016-07-13 06:46] LABS: BASO # 0.1 K/uL (0.0-0.2); BASO % 0.5 % (0.0-2.0); EOS # 0.1 K/uL (0.0-0.7); EOS % 1.2 % (0.0-4.0); HEMATOCRIT 33.4 % (35.0-51.0); LYMPH # 1.3 K/uL (1.0-4.3); LYMPH % 11.9 % (20.0-40.0); MEAN CELL VOLUME 97.2 fL (80.0-94.0); MEAN CORPUSCULAR HEMOGLOBIN 33.5 pg (27.0-31.0); MEAN CORPUSCULAR HGB CONC 34.4 g/dL (33.0-37.0); MEAN PLATELET VOLUME 10.8 fL (7.2-11.7); MONO # 0.7 K/uL (0.0-0.8); MONO % 6.4 % (0.0-10.0); RED CELL DISTRIBUTION WIDTH 13.5 % (11.5-14.5); WHITE BLOOD COUNT 10.8 K/uL (4.8-10.8)
[2016-07-13 06:55] LABS: CHLORIDE 105 mmol/L (98-107); SODIUM 140 mmol/L (132-148)
[2016-07-13 06:57] LABS: ALB/GLOB RATIO 0.9 (1.0-2.1); BILIRUBIN,DIRECT 1.3 mg/dL (0.0-0.4); CARBON DIOXIDE 24 mmol/L (22-30); GFR AFRICAN-AMERICAN > 60; TOTAL PROTEIN 6.6 g/dL (6.3-8.3)
[2016-07-13 06:58] LABS: ALKALINE PHOSPHATASE 154 U/L (38-126); ALT/SGPT 58 U/L (21-72); AST/SGOT 72 U/L (17-59); BLOOD UREA NITROGEN 32 mg/dL (9-20); CALCIUM 7.9 mg/dl (8.6-10.4); GLUCOSE,RANDOM 122 mg/dL (75-110); MAGNESIUM 2.2 mg/dL (1.6-2.3)
[2016-07-13 07:02] LABS: IMMUNOGLOBULIN G 856.2 mg/dL (700.0-1600.0)
[2016-07-13 07:03] LABS: IMMUNOGLOBULIN M 70.4 mg/dL (40.0-230.0)
[2016-07-13] MEDS: (Novolog) Insulin Aspart, Recombinant 100 u/ml 10 ml vial SC SCH ×3 (08:05→18:06)
[2016-07-13] MEDS: Piperacill/Tazo 3.375gm in Dex 3.375 GM/50 ML BAG IVPB SCH ×3 (08:05→23:30)
--- NOTE | 2016-07-13 08:26 | CP.PCM.PN ---
<Valeria Vail - Last Filed: 07/13/16 11:18> Subjective - Date & Time of Evaluation Date of Evaluation: 07/13/16 Time of Evaluation: 08:15 - Subjective Subjective: Patient seen and examined at bedside. Patient is resting comfortably. Patient and present at bedside report concern regarding rash to face which has been present for a few days. Patient reports similar rash affecting face in past but notes it to resolve in shorter period of time. Patient denies pain or pruritus to the area. He denies dysuria, increased urinary frequency and hematuria. Patient and made aware he has infection of his blood. They were also informed at bedside finding of liver mass which will need further work-up. Patient denies abdominal pain and is having normal bowel movements. Objective - Vital Signs/Intake and Output Vital Signs (last 24 hours): Temp Pulse Resp BP Pulse Ox 99.2 F 70 20 125/61 95 07/13/16 00:00 07/13/16 00:00 07/13/16 00:00 07/13/16 00:00 07/13/16 00:00 Intake and Output: 07/13/16 07/13/16 06:59 18:59 Intake Total 2100 Output Total 450 Balance 1650 - Medications Medications: Current Medications Amlodipine Besylate (Norvasc) 5 mg PO DAILY [facility] Last Admin: 07/12/16 09:19 Dose: 5 mg Famotidine (Pepcid) 20 mg PO DAILY [facility] Last Admin: 07/12/16 09:20 Dose: 20 mg Heparin Sodium (Porcine) (Heparin) 5,000 units SC Q12 [facility] Last Admin: 07/12/16 21:08 Dose: 5,000 units Hydrochlorothiazide (Microzide) 12.5 mg PO DAILY [facility] Last Admin: 07/12/16 09:20 Dose: 12.5 mg Sodium Chloride (Sodium Chloride 0.9%) 1,000 mls @ 100 mls/hr IV .Q10H [facility] Last Admin: 07/13/16 07:45 Dose: Not Given Piperacillin Sod/Tazobactam Sod (Zosyn 3.375 Gm Iv Premix) 3.375 gm in 50 mls @ 100 mls/hr IVPB Q8H [facility] Last Admin: 07/13/16 08:05 Dose: 100 mls/hr Insulin Aspart (Novolog) 5 unit SC TIDAC [facility] Last Admin: 07/13/16 08:05 Dose: 5 unit Insulin Glargine (Lantus) 9 unit SC HS [facility] Last Admin: 07/12/16 21:09 Dose: 9 units Losartan Potassium (Cozaar) 100 mg PO DAILY [facility] Last Admin: 07/12/16 09:20 Dose: 100 mg Ejjml-0-Oves Ethyl Esters (Lovaza) 1 gm PO BID [facility] Pneumococcal Polyvalent Vaccine (Pneumovax 23 Vaccine) 0.5 ml IM .ONCE ONE Stop: 07/13/16 10:01 - Labs Labs: 07/13/16 06:31 07/13/16 06:31 PT 15.3 SECONDS (9.7-12.2) H 07/12/16 06:20 INR 1.4 07/12/16 06:20 APTT 28 SECONDS (21-34) 07/12/16 06:20 - Constitutional Appears: Non-toxic, No Acute Distress - Head Exam Additional comments: erythema and scale affecting malar cheeks, glabella, chin and jaw. Scaling noted in bilateral ears. - Eye Exam Eye Exam: EOMI, Scleral icterus Additional comments: arcus sinelis - Neck Exam Neck Exam: Full ROM, Normal Inspection - Respiratory Exam Respiratory Exam: Clear to Ausculation Bilateral, NORMAL BREATHING PATTERN. absent: Rales, Rhonchi, Wheezes - Cardiovascular Exam Cardiovascular Exam: +S1, +S2. absent: Tachycardia - GI/Abdominal Exam GI & Abdominal Exam: Soft, Normal Bowel Sounds. absent: Firm, Guarding, Tenderness - Extremities Exam Extremities Exam: Normal Inspection. absent: Pedal Edema, Tenderness - Neurological Exam Neurological Exam: Alert, Awake, Oriented x3 - Psychiatric Exam Psychiatric exam: Normal Affect, Normal Mood - Skin Additional comments: erythema and scale affecting malar cheeks, glabella, chin and jaw. Scaling noted in bilateral ears. Assessment and Plan - Assessment and Plan (Free Text) Assessment: Cystitis Febrile last night 101.1F, today 99.2F WBC 10.8, 80.0% neutrophils UA: positive nitrates, 3+ leuokocyte esterase, 289 WBC, 4 RBC Urine Culture: Gram negative navjot Blood culture growing gram negative navjot PSA elevated 10.9. Per Dr. Perales, patient will require follow-up in his office within 2 weeks following discharge from hospital to have PSA rechecked. discontinued Rocephin Given stat dose of Gentamicin ID, Dr. Metcalf, consulted. Help appreciated. Will continue on IV Zosyn while ID of organism pending. Normal Saline IV @100cc Urology , Dr. 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 No hepatomegaly. 3.0 cm hypoechoic solid mass in right lobe of liver suspicious for hepatocellular neoplasm. GI, Dr. Colvin, consulted. Will follow-up AFP, autoimmune serologies, GGT, and fractionate bilirubin ordered by GI. Plan for triple phase CT of liver, possibly tomorrow. Patient instructed to have bring results of EGD/colonoscopy for review. Total bilirubin 2.0, Direct bilirubin 1.3, GGT 661, ALK Phos 154, Albumin 0.9 IgG 856.2, IgM 70.4 AST/ALT: 72/58 Hepatitis panel - negative Platelets 140 Coagulation profile: PT/PTT: 15.3/28, INR 1.4 Facial Rash Rosacea/Seborrheic Dermatitis clinically Will start Ketoconazole cream to affected areas of face BID for 4 weeks Patient informed of triggers including coffee, alcohol, spicy food, and heat for rosacea Monitor Hypertension Normotensive Continue home meds- Losartan 100mg po daily HCTZ 12.5mg po daily Amlodipine 5mg po daily Will monitor Diabetes Mellitus Glucose more controlled 136 Hemoglobin a1c 6.3 Metformin 500mg BID on hold to r/o renal etiology Continue Novolog 5 units SC TIDAC and Lantus 9 units SC HS Accucheks ordered Hyperlipidemia Lipid panel: normal, however, low HDL of 20 Continue Lovaza 1 gm po BID Prophylaxis Heparin 5000 SC Q12 [facility] Pepcid 20 mg po daily <Jignesh Montgomery - Last Filed: 07/13/16 15:44> Objective - Vital Signs/Intake and Output Vital Signs (last 24 hours): Temp Pulse Resp BP Pulse Ox 97.6 F 66 20 148/74 96 07/13/16 08:22 07/13/16 08:22 07/13/16 08:22 07/13/16 08:22 07/13/16 08:22 Intake and Output: 07/13/16 07/13/16 06:59 18:59 Intake Total 2100 Output Total 450 Balance 1650 - Medications Medications: Current Medications Amlodipine Besylate (Norvasc) 5 mg PO DAILY [facility] Last Admin: 07/13/16 09:57 Dose: 5 mg Famotidine (Pepcid) 20 mg PO DAILY [facility] Last Admin: 07/13/16 09:57 Dose: 20 mg Heparin Sodium (Porcine) (Heparin) 5,000 units SC Q12 [facility] Last Admin: 07/13/16 09:58 Dose: 5,000 units Hydrochlorothiazide (Microzide) 12.5 mg PO DAILY [facility] Last Admin: 07/13/16 09:57 Dose: 12.5 mg Sodium Chloride (Sodium Chloride 0.9%) 1,000 mls @ 100 mls/hr IV .Q10H [facility] Last Admin: 07/13/16 07:45 Dose: Not Given Piperacillin Sod/Tazobactam Sod (Zosyn 3.375 Gm Iv Premix) 3.375 gm in 50 mls @ 100 mls/hr IVPB Q8H [facility] Last Admin: 07/13/16 14:30 Dose: 100 mls/hr Insulin Aspart (Novolog) 5 unit SC TIDAC [facility] Last Admin: 07/13/16 12:14 Dose: 5 unit Insulin Glargine (Lantus) 9 unit SC HS [facility] Last Admin: 07/12/16 21:09 Dose: 9 units Ketoconazole (Nizoral) 0 gm TOP BID [facility] Losartan Potassium (Cozaar) 100 mg PO DAILY [facility] Last Admin: 07/13/16 09:57 Dose: 100 mg Gpcqm-1-Pkxt Ethyl Esters (Lovaza) 1 gm PO BID [facility] Last Admin: 07/13/16 09:57 Dose: 1 gm - Labs Labs: 07/13/16 06:31 07/13/16 06:31 PT 15.3 SECONDS (9.7-12.2) H 07/12/16 06:20 INR 1.4 07/12/16 06:20 APTT 28 SECONDS (21-34) 07/12/16 06:20 Attending/Attestation - Attestation I have personally seen and examined this patient.: Yes I have fully participated in the care of the patient.: Yes I have reviewed all pertinent clinical information, including history, physical exam and plan: Yes Notes (Text): 07/13/16 15:42 Patient was seen and examined at bedside Patient appears comfortable and does not complain of dysuria. Blood cultures noted. Patient started on IV antibiotics. Patient is currently on Zosyn. Infectious disease on board Patient also evaluated by gastroenterology for lesion on the liver. Patient will need a triple phase CAT scan of the liver when he'll function improves. Acute kidney injury is improving. Patient is on IV fluids. Patient started on ketoconazole for supportive dermatitis I discussed the plan of care with the resident and agree with the above history and physical and assessment/plan.
[2016-07-13] MEDS: Omega-3-Acid Ethyl Esters 1 GM Cap PO SCH ×2 (09:57→18:07)
[2016-07-13] MEDS ORDERED: Pneumococcal 23-Valent Vaccine IM ONE (10:00)
--- NOTE | 2016-07-13 10:18 | CP.PCM.PN ---
<MichaelJuli - Last Filed: 07/13/16 10:59> Subjective - Date & Time of Evaluation Date of Evaluation: 07/13/16 Time of Evaluation: 10:14 - Subjective Subjective: Gastroenterology Fellow/PGY4 Progress Note Patient denies abdominal pain. Loss of appetite. Only ate most of breakfast yesterday. Notes bowel movement yesterday. Continued dysuria with voiding. A 12- point review of systems negative except fora s above. Objective - Vital Signs/Intake and Output Vital Signs (last 24 hours): Temp Pulse Resp BP Pulse Ox 97.6 F 66 20 148/74 96 07/13/16 08:22 07/13/16 08:22 07/13/16 08:22 07/13/16 08:22 07/13/16 08:22 Intake and Output: 07/13/16 07/13/16 06:59 18:59 Intake Total 2100 Output Total 450 Balance 1650 - Medications Medications: Current Medications Amlodipine Besylate (Norvasc) 5 mg PO DAILY [facility] Last Admin: 07/13/16 09:57 Dose: 5 mg Famotidine (Pepcid) 20 mg PO DAILY [facility] Last Admin: 07/13/16 09:57 Dose: 20 mg Heparin Sodium (Porcine) (Heparin) 5,000 units SC Q12 [facility] Last Admin: 07/13/16 09:58 Dose: 5,000 units Hydrochlorothiazide (Microzide) 12.5 mg PO DAILY [facility] Last Admin: 07/13/16 09:57 Dose: 12.5 mg Sodium Chloride (Sodium Chloride 0.9%) 1,000 mls @ 100 mls/hr IV .Q10H [facility] Last Admin: 07/13/16 07:45 Dose: Not Given Piperacillin Sod/Tazobactam Sod (Zosyn 3.375 Gm Iv Premix) 3.375 gm in 50 mls @ 100 mls/hr IVPB Q8H [facility] Last Admin: 07/13/16 08:05 Dose: 100 mls/hr Insulin Aspart (Novolog) 5 unit SC TIDAC [facility] Last Admin: 07/13/16 08:05 Dose: 5 unit Insulin Glargine (Lantus) 9 unit SC HS [facility] Last Admin: 07/12/16 21:09 Dose: 9 units Losartan Potassium (Cozaar) 100 mg PO DAILY [facility] Last Admin: 07/13/16 09:57 Dose: 100 mg Vphif-2-Kqgq Ethyl Esters (Lovaza) 1 gm PO BID [facility] Last Admin: 07/13/16 09:57 Dose: 1 gm - Labs Labs: 07/13/16 06:31 07/13/16 06:31 PT 15.3 SECONDS (9.7-12.2) H 07/12/16 06:20 INR 1.4 07/12/16 06:20 APTT 28 SECONDS (21-34) 07/12/16 06:20 - Constitutional Appears: Non-toxic, No Acute Distress - Head Exam Head Exam: ATRAUMATIC, NORMOCEPHALIC - Eye Exam Eye Exam: EOMI, PERRL Pupil Exam: NORMAL ACCOMODATION, PERRL. absent: Miosis, Mydriatic - ENT Exam ENT Exam: Mucous Membranes Moist, Normal Oropharynx - Neck Exam Neck Exam: Full ROM, Normal Inspection - Respiratory Exam Respiratory Exam: Clear to Ausculation Bilateral. absent: Rales, Rhonchi, Wheezes - Cardiovascular Exam Cardiovascular Exam: RRR, +S1, +S2. absent: Gallop, Rubs - GI/Abdominal Exam GI & Abdominal Exam: Soft, Normal Bowel Sounds. absent: Distended, Firm, Guarding, Rigid, Tenderness, Organomegaly, Rebound - Extremities Exam Extremities Exam: Full ROM. absent: Pedal Edema - Neurological Exam Neurological Exam: Alert, Awake Additional comments: no asterixis - Psychiatric Exam Psychiatric exam: Normal Affect, Normal Mood - Skin Skin Exam: Dry, Intact, Normal Color Assessment and Plan - Assessment and Plan (Free Text) Assessment: 75 year old male with history of Hypertension, Diabetes, Hyperlipidemia presenting with fever and dysuria. Active treatment of E coli UTI. Ultrasounds showed a solid 2.8 x 2.1 x 3 cm mass, cirrhosis (likely ETOH), and cholelithiasis. Laboratory findings with conjugated hyperbilirubinemia, coagulopathy, and elevated transaminases. Endorsed EGD and colonoscopy 1-2 years ago. Plan: >MELD 10, on admission >low sodium diet >strict I&Os >on gentle IVFs >daily LFTs, INR >negative Hepatits panel, IgA, IgG >pending autoimmune workup >AFP 3.1 >will plan for CT liver triple phase Friday if creatinine continues to improve >pending blood cultures >urine culture-E coli UTI >on zosyn >await EGD/colonoscopy reports from patient/ endorsed to be 1-2 years ago >further recommendations based on clinical course <Merlyn Colvin - Last Filed: 07/13/16 11:07> Objective - Vital Signs/Intake and Output Vital Signs (last 24 hours): Temp Pulse Resp BP Pulse Ox 97.6 F 66 20 148/74 96 07/13/16 08:22 07/13/16 08:22 07/13/16 08:22 07/13/16 08:22 07/13/16 08:22 Intake and Output: 07/13/16 07/13/16 06:59 18:59 Intake Total 2100 Output Total 450 Balance 1650 - Medications Medications: Current Medications Amlodipine Besylate (Norvasc) 5 mg PO DAILY [facility] Last Admin: 07/13/16 09:57 Dose: 5 mg Famotidine (Pepcid) 20 mg PO DAILY [facility] Last Admin: 07/13/16 09:57 Dose: 20 mg Heparin Sodium (Porcine) (Heparin) 5,000 units SC Q12 [facility] Last Admin: 07/13/16 09:58 Dose: 5,000 units Hydrochlorothiazide (Microzide) 12.5 mg PO DAILY [facility] Last Admin: 07/13/16 09:57 Dose: 12.5 mg Sodium Chloride (Sodium Chloride 0.9%) 1,000 mls @ 100 mls/hr IV .Q10H [facility] Last Admin: 07/13/16 07:45 Dose: Not Given Piperacillin Sod/Tazobactam Sod (Zosyn 3.375 Gm Iv Premix) 3.375 gm in 50 mls @ 100 mls/hr IVPB Q8H [facility] Last Admin: 07/13/16 08:05 Dose: 100 mls/hr Insulin Aspart (Novolog) 5 unit SC TIDAC [facility] Last Admin: 07/13/16 08:05 Dose: 5 unit Insulin Glargine (Lantus) 9 unit SC HS [facility] Last Admin: 07/12/16 21:09 Dose: 9 units Losartan Potassium (Cozaar) 100 mg PO DAILY [facility] Last Admin: 07/13/16 09:57 Dose: 100 mg Ncgwb-1-Coum Ethyl Esters (Lovaza) 1 gm PO BID [facility] Last Admin: 07/13/16 09:57 Dose: 1 gm - Labs Labs: 07/13/16 06:31 07/13/16 06:31 PT 15.3 SECONDS (9.7-12.2) H 07/12/16 06:20 INR 1.4 07/12/16 06:20 APTT 28 SECONDS (21-34) 07/12/16 06:20 Attending/Attestation - Attestation I have personally seen and examined this patient.: Yes I have fully participated in the care of the patient.: Yes I have reviewed all pertinent clinical information, including history, physical exam and plan: Yes Notes (Text): Patient seen and examined with GI fellow. Agree with her note as documented above with the following additions/exceptions. This is a 75 year old male with h/o HTN, DM who is admitted with fever and dysuria secondary to E coli UTI. He has abnormal LFTs, coagulopathy and thrombocytopenia. His abdominal ultrasound shows 2.8x3cm hypoechoic solid liver mass and nodular liver contour. AFP normal. Hep panel negative, autoimmune serologies pending. Continue supportive care/antibiotic therapy as per primary medical team. Obtain triple phase liver CT for further evaluation of liver mass/evaluate liver parenchyma when renal function improved. Obtain prior endoscopic records. Diet as tolerated. 07/13/16 11:04
[2016-07-13] MEDS: (Lantus) Insulin Glargine, Recombinant SC SCH (21:49)
--- NOTE | 2016-07-14 06:37 | CP.PCM.PN ---
<Juli Rodriguez - Last Filed: 07/14/16 08:47> Subjective - Date & Time of Evaluation Date of Evaluation: 07/14/16 Time of Evaluation: 06:34 - Subjective Subjective: Gastroenterology Fellow/PGY4 Progress Note Patient notes improving appetite and resolution of dysuria. Tolerating diet. Notes bowel movement. A 12-point review of systems negative except for as above. Objective - Vital Signs/Intake and Output Vital Signs (last 24 hours): Temp Pulse Resp BP Pulse Ox 97.9 F 66 20 155/83 H 96 07/14/16 00:00 07/14/16 00:00 07/14/16 00:00 07/14/16 00:00 07/14/16 00:00 Intake and Output: 07/13/16 07/14/16 18:59 06:59 Intake Total 1250 300 Balance 1250 300 - Medications Medications: Current Medications Amlodipine Besylate (Norvasc) 5 mg PO DAILY [facility] Last Admin: 07/13/16 09:57 Dose: 5 mg Famotidine (Pepcid) 20 mg PO DAILY [facility] Last Admin: 07/13/16 09:57 Dose: 20 mg Heparin Sodium (Porcine) (Heparin) 5,000 units SC Q12 [facility] Last Admin: 07/13/16 21:48 Dose: 5,000 units Hydrochlorothiazide (Microzide) 12.5 mg PO DAILY [facility] Last Admin: 07/13/16 09:57 Dose: 12.5 mg Sodium Chloride (Sodium Chloride 0.9%) 1,000 mls @ 100 mls/hr IV .Q10H [facility] Last Admin: 07/13/16 21:47 Dose: 100 mls/hr Piperacillin Sod/Tazobactam Sod (Zosyn 3.375 Gm Iv Premix) 3.375 gm in 50 mls @ 100 mls/hr IVPB Q8H [facility] Last Admin: 07/13/16 23:30 Dose: 100 mls/hr Insulin Aspart (Novolog) 5 unit SC TIDAC [facility] Last Admin: 07/13/16 18:06 Dose: 5 unit Insulin Glargine (Lantus) 9 unit SC HS [facility] Last Admin: 07/13/16 21:49 Dose: 9 units Ketoconazole (Nizoral) 0 gm TOP BID [facility] Last Admin: 07/13/16 18:11 Dose: 1 applic Losartan Potassium (Cozaar) 100 mg PO DAILY [facility] Last Admin: 07/13/16 09:57 Dose: 100 mg Xcjxq-3-Rcex Ethyl Esters (Lovaza) 1 gm PO BID [facility] Last Admin: 07/13/16 18:07 Dose: 1 gm - Labs Labs: 07/13/16 06:31 07/13/16 06:31 PT 15.3 SECONDS (9.7-12.2) H 07/12/16 06:20 INR 1.4 07/12/16 06:20 APTT 28 SECONDS (21-34) 07/12/16 06:20 - Constitutional Appears: Non-toxic, No Acute Distress - Head Exam Head Exam: ATRAUMATIC, NORMOCEPHALIC - Eye Exam Eye Exam: EOMI, PERRL Pupil Exam: PERRL. absent: Miosis, Mydriatic - ENT Exam ENT Exam: Mucous Membranes Moist, Normal Oropharynx - Neck Exam Neck Exam: Full ROM, Normal Inspection - Respiratory Exam Respiratory Exam: Clear to Ausculation Bilateral. absent: Rales, Rhonchi, Wheezes - Cardiovascular Exam Cardiovascular Exam: RRR, +S1, +S2. absent: Gallop, Rubs - GI/Abdominal Exam GI & Abdominal Exam: Soft, Normal Bowel Sounds. absent: Distended, Firm, Guarding, Rigid, Tenderness, Organomegaly, Rebound - Extremities Exam Extremities Exam: Full ROM. absent: Pedal Edema - Neurological Exam Neurological Exam: Alert - Psychiatric Exam Psychiatric exam: Normal Affect, Normal Mood - Skin Skin Exam: Dry, Intact, Normal Color, Warm Assessment and Plan - Assessment and Plan (Free Text) Assessment: 75 year old male with history of Hypertension, Diabetes, Hyperlipidemia presenting with fever and dysuria. Active treatment of E coli UTI. Ultrasounds showed a solid 2.8 x 2.1 x 3 cm mass, cirrhosis (likely ETOH), and cholelithiasis. Laboratory findings with conjugated hyperbilirubinemia, coagulopathy, and elevated transaminases. Endorsed EGD and colonoscopy 1-2 years ago. Plan: >MELD 10, on admission >obtain CT liver triple phase today >pending autoimmune workup >urine culture-E coli UTI, repeat urine culture- no growth >on zosyn >daily LFTs, INR >negative Hepatitis panel, IgA, IgG >AFP 3.1 >low sodium diet >strict I&Os >pending blood cultures >patient/ to provide EGD/colonoscopy reports performed 2 years ago >further recommendations based on clinical course <Merlyn Colvin - Last Filed: 07/14/16 12:36> Objective - Vital Signs/Intake and Output Vital Signs (last 24 hours): Temp Pulse Resp BP Pulse Ox 97.6 F 61 20 157/77 H 98 07/14/16 08:00 07/14/16 08:00 07/14/16 08:00 07/14/16 08:00 07/14/16 08:00 Intake and Output: 07/14/16 07/14/16 06:59 18:59 Intake Total 300 Balance 300 - Medications Medications: Current Medications Amlodipine Besylate (Norvasc) 5 mg PO DAILY [facility] Last Admin: 07/14/16 09:55 Dose: 5 mg Famotidine (Pepcid) 20 mg PO DAILY [facility] Last Admin: 07/14/16 09:55 Dose: 20 mg Heparin Sodium (Porcine) (Heparin) 5,000 units SC Q12 [facility] Last Admin: 07/14/16 09:55 Dose: 5,000 units Hydrochlorothiazide (Microzide) 12.5 mg PO DAILY [facility] Last Admin: 07/14/16 09:55 Dose: 12.5 mg Sodium Chloride (Sodium Chloride 0.9%) 1,000 mls @ 100 mls/hr IV .Q10H [facility] Last Admin: 07/13/16 21:47 Dose: 100 mls/hr Piperacillin Sod/Tazobactam Sod (Zosyn 3.375 Gm Iv Premix) 3.375 gm in 50 mls @ 100 mls/hr IVPB Q8H [facility] Last Admin: 07/14/16 07:39 Dose: 100 mls/hr Insulin Aspart (Novolog) 5 unit SC TIDAC [facility] Last Admin: 07/14/16 11:38 Dose: 5 unit Insulin Glargine (Lantus) 9 unit SC HS [facility] Last Admin: 07/13/16 21:49 Dose: 9 units Ketoconazole (Nizoral) 0 gm TOP BID [facility] Last Admin: 07/14/16 09:55 Dose: 1 applic Losartan Potassium (Cozaar) 100 mg PO DAILY [facility] Last Admin: 07/14/16 09:55 Dose: 100 mg Rlueq-1-Ongb Ethyl Esters (Lovaza) 1 gm PO BID [facility] Last Admin: 07/14/16 09:55 Dose: 1 gm - Labs Labs: 07/14/16 06:52 07/14/16 06:52 PT 14.3 SECONDS (9.7-12.2) H 07/14/16 11:29 INR 1.3 07/14/16 11:29 APTT 28 SECONDS (21-34) 07/12/16 06:20 Attending/Attestation - Attestation I have personally seen and examined this patient.: Yes I have fully participated in the care of the patient.: Yes I have reviewed all pertinent clinical information, including history, physical exam and plan: Yes Notes (Text): Patient seen and examined with GI fellow. Agree with her note as documented above with the following additions/exceptions. This is a 75 year old male with h/o HTN, DM who is admitted with fever and dysuria secondary to E coli UTI. He has abnormal LFTs, coagulopathy and thrombocytopenia (possible ETOH cirrhosis). His abdominal ultrasound shows 2.8x3cm hypoechoic solid liver mass and nodular liver contour. AFP normal. Obtain liver protocol CT scan. Diet as tolerated. Continue antibiotic therapy for UTI as per primary medical service. 07/14/16 12:35
[2016-07-14 07:15] LABS: BASO % 0.4 % (0.0-2.0); EOS # 0.4 K/uL (0.0-0.7); EOS % 4.6 % (0.0-4.0); HEMATOCRIT 35.3 % (35.0-51.0); LYMPH # 1.1 K/uL (1.0-4.3); LYMPH % 12.6 % (20.0-40.0); MEAN CELL VOLUME 96.5 fL (80.0-94.0); MEAN CORPUSCULAR HEMOGLOBIN 33.1 pg (27.0-31.0); MEAN CORPUSCULAR HGB CONC 34.3 g/dL (33.0-37.0); MONO # 0.7 K/uL (0.0-0.8); MONO % 8.4 % (0.0-10.0); RED CELL DISTRIBUTION WIDTH 13.5 % (11.5-14.5); WHITE BLOOD COUNT 8.8 K/uL (4.8-10.8)
[2016-07-14 07:19] LABS: CHLORIDE 107 mmol/L (98-107); POTASSIUM 3.9 mmol/L (3.6-5.2); SODIUM 138 mmol/L (132-148)
[2016-07-14 07:21] LABS: ALB/GLOB RATIO 0.9 (1.0-2.1); ALKALINE PHOSPHATASE 186 U/L (38-126); AST/SGOT 96 U/L (17-59); BILIRUBIN,TOTAL 1.4 mg/dL (0.2-1.3); BLOOD UREA NITROGEN 26 mg/dL (9-20); CARBON DIOXIDE 21 mmol/L (22-30); GFR AFRICAN-AMERICAN > 60; TOTAL PROTEIN 6.6 g/dL (6.3-8.3)
[2016-07-14 07:22] LABS: ALT/SGPT 83 U/L (21-72); CALCIUM 8.3 mg/dl (8.6-10.4); GLUCOSE,RANDOM 142 mg/dL (75-110); MAGNESIUM 2.2 mg/dL (1.6-2.3)
[2016-07-14] MEDS: Piperacill/Tazo 3.375gm in Dex 3.375 GM/50 ML BAG IVPB SCH ×2 (07:39→14:37)
[2016-07-14] MEDS: (Novolog) Insulin Aspart, Recombinant 100 u/ml 10 ml vial SC SCH ×3 (07:39→17:38)
--- NOTE | 2016-07-14 08:11 | CP.PCM.PN ---
<GennaValeria - Last Filed: 07/14/16 14:46> Subjective - Date & Time of Evaluation Date of Evaluation: 07/14/16 Time of Evaluation: 08:02 - Subjective Subjective: Patient seen and examined at bedside. Patient is resting comfortably. Patient states he slept well throughout the night and is feeling less fatigued. Patient reports no changes in urination or bowel movements. Patient reports he has normal appetite. Patient states his is bringing his most recent endoscopy/ colonoscopy report to the hospital tomorrow. He denies headache, fever, chills, dizziness, nausea, vomiting, chest pain, palpitations, sob, abdominal pain, and lower extremity swelling. Objective - Vital Signs/Intake and Output Vital Signs (last 24 hours): Temp Pulse Resp BP Pulse Ox 97.9 F 66 20 155/83 H 96 07/14/16 00:00 07/14/16 00:00 07/14/16 00:00 07/14/16 00:00 07/14/16 00:00 Intake and Output: 07/14/16 07/14/16 06:59 18:59 Intake Total 300 Balance 300 - Medications Medications: Current Medications Amlodipine Besylate (Norvasc) 5 mg PO DAILY [facility] Last Admin: 07/13/16 09:57 Dose: 5 mg Famotidine (Pepcid) 20 mg PO DAILY [facility] Last Admin: 07/13/16 09:57 Dose: 20 mg Heparin Sodium (Porcine) (Heparin) 5,000 units SC Q12 [facility] Last Admin: 07/13/16 21:48 Dose: 5,000 units Hydrochlorothiazide (Microzide) 12.5 mg PO DAILY [facility] Last Admin: 07/13/16 09:57 Dose: 12.5 mg Sodium Chloride (Sodium Chloride 0.9%) 1,000 mls @ 100 mls/hr IV .Q10H [facility] Last Admin: 07/13/16 21:47 Dose: 100 mls/hr Piperacillin Sod/Tazobactam Sod (Zosyn 3.375 Gm Iv Premix) 3.375 gm in 50 mls @ 100 mls/hr IVPB Q8H [facility] Last Admin: 07/14/16 07:39 Dose: 100 mls/hr Insulin Aspart (Novolog) 5 unit SC TIDAC [facility] Last Admin: 07/14/16 07:39 Dose: 5 unit Insulin Glargine (Lantus) 9 unit SC HS [facility] Last Admin: 07/13/16 21:49 Dose: 9 units Ketoconazole (Nizoral) 0 gm TOP BID [facility] Last Admin: 07/13/16 18:11 Dose: 1 applic Losartan Potassium (Cozaar) 100 mg PO DAILY [facility] Last Admin: 07/13/16 09:57 Dose: 100 mg Wwbnr-4-Ehlo Ethyl Esters (Lovaza) 1 gm PO BID [facility] Last Admin: 07/13/16 18:07 Dose: 1 gm - Labs Labs: 07/14/16 06:52 07/14/16 06:52 PT 15.3 SECONDS (9.7-12.2) H 07/12/16 06:20 INR 1.4 07/12/16 06:20 APTT 28 SECONDS (21-34) 07/12/16 06:20 - Constitutional Appears: Well, No Acute Distress - Head Exam Head Exam: ATRAUMATIC, NORMOCEPHALIC Additional comments: reduction of erythema to malar cheeks, glabella, and chin. Increased scaling to affected area. - Eye Exam Eye Exam: EOMI, Normal appearance, PERRL Pupil Exam: NORMAL ACCOMODATION - ENT Exam ENT Exam: Mucous Membranes Moist, Normal Exam - Neck Exam Neck Exam: Normal Inspection - Respiratory Exam Respiratory Exam: Clear to Ausculation Bilateral, NORMAL BREATHING PATTERN. absent: Rales, Rhonchi, Wheezes - Cardiovascular Exam Cardiovascular Exam: REGULAR RHYTHM, +S1, +S2. absent: Gallop, Rubs, Murmur - GI/Abdominal Exam GI & Abdominal Exam: Soft, Normal Bowel Sounds. absent: Distended, Firm, Guarding, Tenderness, Rebound - Extremities Exam Extremities Exam: Normal Inspection. absent: Joint Swelling, Pedal Edema, Tenderness - Back Exam Back Exam: NORMAL INSPECTION. absent: CVA tenderness (L), CVA tenderness (R) - Neurological Exam Neurological Exam: Alert, Awake, CN II-XII Intact, Oriented x3 - Psychiatric Exam Psychiatric exam: Normal Affect, Normal Mood - Skin Skin Exam: Intact, Warm Additional comments: reduction of erythema to malar cheeks, glabella, and chin. Increased scaling to affected area. Assessment and Plan - Assessment and Plan (Free Text) Assessment: Cystitis Afebrile WBC 8.8, 74.0% neutrophils UA: positive nitrates, 3+ leuokocyte esterase, 289 WBC, 4 RBC Urine Culture: E. Coli Repeat Urine Culture - negative Blood culture growing gram negative navjot, organism - E. coli PSA elevated 10.9. Per Dr. Perales, patient will require follow-up in his office within 2 weeks following discharge from hospital to have PSA rechecked. discontinued Rocephin Given stat dose of Gentamicin ID, Dr. Metcalf, consulted. Help appreciated. Will continue on IV Zosyn while ID of organism pending. Normal Saline IV @100cc Urology , Dr. Perales, consulted - help appreciated KENDRA BUN/CR 26/1.2 Continue IV fluids Monitor Hepatomegaly history of alcohol use Liver CT triple phase: Nodular hepatic contour compatible with cirrhosis. Hepatic steatosis. Hypoechoic rounded lesion identified in right hepatic lobe on ultrasound is not appreciated on the submitted views, possibly related to focal fatty sparing. Recommend MRI liver protocol for further evaluation and confirmation. Gallstone within gallbladder neck. Bibasilar atelectasis/ fibrosis. Trace bilateral pleural effusions. 18 mm right renal cyst. Bilateral too small to characterize renal hypodensities, statistically likely cysts. Enlarged heterogenous prostate gland. Abdominal Ultrasound: Probable hepatic cirrhosis. No hepatomegaly. 3.0 cm hypoechoic solid mass in right lobe of liver suspicious for hepatocellular neoplasm. GI, Dr. Colvin, consulted. Will follow-up AFP, autoimmune serologies, GGT, and fractionate bilirubin ordered by GI. Plan for triple phase CT of liver, possibly tomorrow. Patient instructed to have bring results of EGD/colonoscopy for review. Total bilirubin 2.0, Direct bilirubin 1.3, GGT 661, ALK Phos 186 Albumin 0.9 AFP 3.1 IgG 856.2, IgM 70.4 - negative AST/ALT: 72/58 Hepatitis panel - negative Platelets Coagulation profile: PT/PTT: Facial Rash Rosacea/Seborrheic Dermatitis clinically Continue Ketoconazole cream to affected areas of face BID for 4 weeks Patient informed of triggers including coffee, alcohol, spicy food, and heat for rosacea f/u KENDRICK Monitor Hypertension Normotensive Continue home meds- Losartan 100mg po daily HCTZ 12.5mg po daily Amlodipine 5mg po daily Will monitor Diabetes Mellitus Glucose more controlled 129 Hemoglobin a1c 6.3 Metformin 500mg BID on hold to r/o renal etiology Continue Novolog 5 units SC TIDAC and Lantus 9 units SC HS Accucheks ordered Hyperlipidemia Lipid panel: normal, however, low HDL of 20 Continue Lovaza 1 gm po BID Prophylaxis Heparin 5000 SC Q12 SCD Pepcid 20 mg po daily <Birgit Montgomeryn Abhishek - Last Filed: 07/14/16 16:43> Objective - Vital Signs/Intake and Output Vital Signs (last 24 hours): Temp Pulse Resp BP Pulse Ox 97.6 F 61 20 157/77 H 98 07/14/16 08:00 07/14/16 08:00 07/14/16 08:00 07/14/16 08:00 07/14/16 08:00 Intake and Output: 07/14/16 07/14/16 06:59 18:59 Intake Total 300 1250 Balance 300 1250 - Medications Medications: Current Medications Amlodipine Besylate (Norvasc) 5 mg PO DAILY [facility] Last Admin: 07/14/16 09:55 Dose: 5 mg Famotidine (Pepcid) 20 mg PO DAILY [facility] Last Admin: 07/14/16 09:55 Dose: 20 mg Heparin Sodium (Porcine) (Heparin) 5,000 units SC Q12 [facility] Last Admin: 07/14/16 09:55 Dose: 5,000 units Hydrochlorothiazide (Microzide) 12.5 mg PO DAILY [facility] Last Admin: 07/14/16 09:55 Dose: 12.5 mg Piperacillin Sod/Tazobactam Sod (Zosyn 3.375 Gm Iv Premix) 3.375 gm in 50 mls @ 100 mls/hr IVPB Q8H [facility] Last Admin: 07/14/16 14:37 Dose: 100 mls/hr Insulin Aspart (Novolog) 5 unit SC TIDAC [facility] Last Admin: 07/14/16 11:38 Dose: 5 unit Insulin Glargine (Lantus) 9 unit SC HS [facility] Last Admin: 07/13/16 21:49 Dose: 9 units Ketoconazole (Nizoral) 0 gm TOP BID [facility] Last Admin: 07/14/16 09:55 Dose: 1 applic Losartan Potassium (Cozaar) 100 mg PO DAILY [facility] Last Admin: 07/14/16 09:55 Dose: 100 mg Uobag-5-Iuim Ethyl Esters (Lovaza) 1 gm PO BID [facility] Last Admin: 07/14/16 09:55 Dose: 1 gm - Labs Labs: 07/14/16 06:52 07/14/16 06:52 PT 14.3 SECONDS (9.7-12.2) H 07/14/16 11:29 INR 1.3 07/14/16 11:29 APTT 28 SECONDS (21-34) 07/12/16 06:20 Attending/Attestation - Attestation I have personally seen and examined this patient.: Yes I have fully participated in the care of the patient.: Yes I have reviewed all pertinent clinical information, including history, physical exam and plan: Yes Notes (Text): 07/14/16 16:41 Patient was seen and examined at bedside Family is present at bedside and sent patient appears comfortable Blood and urine cultures noted Continue antibiotics as per recommendations of ID Patient is on Zosyn. CT scan of the liver completed. Report reviewed. Shows cirrhosis Further management and recommendations as per GI Repeat blood cultures tomorrow morning. I agree with the above history and physical and assessment/plan but the resident.
[2016-07-14] MEDS: Omega-3-Acid Ethyl Esters 1 GM Cap PO SCH ×2 (09:55→17:38)
[2016-07-14] MEDS ORDERED: Iodixanol 320 MG/ML 100 ML BOTTLE IV ONE (10:29)
[2016-07-14 11:46] LABS: INR 1.3
--- NOTE | 2016-07-14 13:54 | CT ---
CT abdomen and pelvis without/with IV contrast Indication: hepatic mass, elevated LFTs Technique: Contiguous axial images of the abdomen and pelvis without & with IV contrast utilizing liver protocol. Coronal and Sagittal reformats generated and reviewed. This CT exam was performed using 1 or more of the falling dose reduction techniques: Automated exposure control, adjustment of the MAA and/or kV according to patient size, and/or use of iterative reconstruction technique. Contrast: 100 mL Visipaque 320 administered. No oral contrast. Radiation dose: Total exam DLP = 1399.83 MGy-cm. Comparison: Abdominal ultrasound performed 07/11/16 Findings: Visualized portions of the heart appear within normal limits of size. Bibasilar atelectasis/fibrosis. Trace bilateral pleural effusions. No visible pneumothorax. Small hiatal hernia. Nodular hepatic contour. Hypoattenuation of the liver compatible with hepatic steatosis. Gallstone noted within the gallbladder neck. 18 mm right renal hypodense lesion, likely cyst. Bilateral too small to characterize renal hypodensities, statistically likely cysts. The kidneys enhance symmetrically. No evidence of hydronephrosis or obstructing calculus. The spleen, pancreas, and adrenal glands appear unremarkable. The stomach is nondistended. The bowel loops appear within normal limits of caliber without evidence of intestinal obstruction. Proximal duodenal diverticulum. There is no definite free air. Enlarged heterogeneous prostate gland measures approximately 5.3 x 5.7 cm. Thick-walled urinary bladder, likely exaggerated by under distension. Degenerative changes. Impression: Nodular hepatic contour compatible with cirrhosis. Hepatic steatosis. Hypoechoic rounded lesion identified in the right hepatic lobe on ultrasound is not appreciated on the submitted views, possibly related to focal fatty sparing. Recommend MRI liver protocol for further evaluation and confirmation. Gallstone within the gallbladder neck. Bibasilar atelectasis/fibrosis. Trace bilateral pleural effusions. 18 mm right renal cyst. Bilateral too small to characterize renal hypodensities, statistically likely cysts. Enlarged heterogeneous prostate gland. Recommend correlation with PSA. Thick-walled urinary bladder, likely exaggerated by under distension. Correlate with urinalysis. Additional findings as above.
[2016-07-14] MEDS: Sodium Chloride 0.9% 1,000 ML IV SCH (14:38)
--- NOTE | 2016-07-14 16:58 | CP.PCM.PN ---
Subjective - Date & Time of Evaluation Date of Evaluation: 07/14/16 Time of Evaluation: 09:00 - Subjective Subjective: MULTIPLE POSITIVE BLOOD AND URINE CULTURES IV RX IN PROGRESS Objective - Vital Signs/Intake and Output Vital Signs (last 24 hours): Temp Pulse Resp BP Pulse Ox 97.6 F 61 20 157/77 H 98 07/14/16 08:00 07/14/16 08:00 07/14/16 08:00 07/14/16 08:00 07/14/16 08:00 Intake and Output: 07/14/16 07/14/16 06:59 18:59 Intake Total 300 1250 Balance 300 1250 - Medications Medications: Current Medications Amlodipine Besylate (Norvasc) 5 mg PO DAILY [facility] Last Admin: 07/14/16 09:55 Dose: 5 mg Famotidine (Pepcid) 20 mg PO DAILY [facility] Last Admin: 07/14/16 09:55 Dose: 20 mg Heparin Sodium (Porcine) (Heparin) 5,000 units SC Q12 [facility] Last Admin: 07/14/16 09:55 Dose: 5,000 units Hydrochlorothiazide (Microzide) 12.5 mg PO DAILY [facility] Last Admin: 07/14/16 09:55 Dose: 12.5 mg Piperacillin Sod/Tazobactam Sod (Zosyn 3.375 Gm Iv Premix) 3.375 gm in 50 mls @ 100 mls/hr IVPB Q8H [facility] Last Admin: 07/14/16 14:37 Dose: 100 mls/hr Insulin Aspart (Novolog) 5 unit SC TIDAC [facility] Last Admin: 07/14/16 11:38 Dose: 5 unit Insulin Glargine (Lantus) 9 unit SC HS [facility] Last Admin: 07/13/16 21:49 Dose: 9 units Ketoconazole (Nizoral) 0 gm TOP BID [facility] Last Admin: 07/14/16 09:55 Dose: 1 applic Losartan Potassium (Cozaar) 100 mg PO DAILY [facility] Last Admin: 07/14/16 09:55 Dose: 100 mg Irtjk-8-Jtof Ethyl Esters (Lovaza) 1 gm PO BID [facility] Last Admin: 07/14/16 09:55 Dose: 1 gm - Labs Labs: 07/14/16 06:52 07/14/16 06:52 PT 14.3 SECONDS (9.7-12.2) H 07/14/16 11:29 INR 1.3 07/14/16 11:29 APTT 28 SECONDS (21-34) 07/12/16 06:20 - Constitutional Appears: Chronically Ill - Head Exam Head Exam: NORMOCEPHALIC - Eye Exam Eye Exam: absent: Scleral icterus - ENT Exam ENT Exam: Mucous Membranes Dry - Neck Exam Neck Exam: absent: Lymphadenopathy - Respiratory Exam Respiratory Exam: Decreased Breath Sounds, Rhonchi - Cardiovascular Exam Cardiovascular Exam: REGULAR RHYTHM, +S1, +S2 Assessment and Plan (1) Bacteremia Status: Acute (2) Bacteremia Status: Acute (3) Pyelonephritis Status: Acute - Assessment and Plan (Free Text) Plan: CONT IV ROCEPHIN
[2016-07-14] MEDS: cefTRIAXone 2 GM in Sodium Chloride 0.9% 100 ML IVPB SCH (20:16)
[2016-07-14] MEDS: (Lantus) Insulin Glargine, Recombinant SC SCH (21:55)
[2016-07-15 07:26] LABS: BASO # 0.1 K/uL (0.0-0.2); BASO % 0.8 % (0.0-2.0); EOS # 0.4 K/uL (0.0-0.7); HEMATOCRIT 36.3 % (35.0-51.0); LYMPH # 1.5 K/uL (1.0-4.3); LYMPH % 16.5 % (20.0-40.0); MEAN CELL VOLUME 97.8 fL (80.0-94.0); MEAN CORPUSCULAR HEMOGLOBIN 32.8 pg (27.0-31.0); MEAN CORPUSCULAR HGB CONC 33.6 g/dL (33.0-37.0); MONO # 0.7 K/uL (0.0-0.8); MONO % 8.1 % (0.0-10.0); RED CELL DISTRIBUTION WIDTH 13.4 % (11.5-14.5); WHITE BLOOD COUNT 8.9 K/uL (4.8-10.8)
[2016-07-15 07:33] LABS: INR 1.3
[2016-07-15 07:40] LABS: CHLORIDE 105 mmol/L (98-107)
[2016-07-15 07:41] LABS: POTASSIUM 3.9 mmol/L (3.6-5.2); SODIUM 139 mmol/L (132-148)
[2016-07-15 07:43] LABS: ALKALINE PHOSPHATASE 182 U/L (38-126); AST/SGOT 77 U/L (17-59); BILIRUBIN,TOTAL 1.2 mg/dL (0.2-1.3); BLOOD UREA NITROGEN 21 mg/dL (9-20); CARBON DIOXIDE 23 mmol/L (22-30); GFR AFRICAN-AMERICAN > 60; TOTAL PROTEIN 6.9 g/dL (6.3-8.3)
[2016-07-15 07:44] LABS: ALT/SGPT 83 U/L (21-72); CALCIUM 8.7 mg/dl (8.6-10.4); GLUCOSE,RANDOM 119 mg/dL (75-110); MAGNESIUM 2.1 mg/dL (1.6-2.3)
[2016-07-15 07:46] LABS: ALB/GLOB RATIO 0.9 (1.0-2.1)
[2016-07-15] MEDS: (Novolog) Insulin Aspart, Recombinant 100 u/ml 10 ml vial SC SCH ×3 (08:34→17:27)
[2016-07-15] MEDS: Omega-3-Acid Ethyl Esters 1 GM Cap PO SCH ×2 (11:04→17:32)
--- NOTE | 2016-07-15 11:48 | CP.PCM.PN ---
<StaceyValeria reich - Last Filed: 07/15/16 17:21> Subjective - Date & Time of Evaluation Date of Evaluation: 07/15/16 Time of Evaluation: 11:48 - Subjective Subjective: Patient seen and examined at bedside. Patient denies all symptoms including chest pain, shortness of breath, palpitations, abdominal pain, nausea, vomiting , constipation, dairrhea, lower extremity edema. Patient for Abdominal MRI today. Objective - Vital Signs/Intake and Output Vital Signs (last 24 hours): Temp Pulse Resp BP Pulse Ox 97.4 F L 70 20 139/76 99 07/15/16 09:05 07/15/16 09:05 07/15/16 09:05 07/15/16 09:05 07/15/16 09:05 Intake and Output: 07/15/16 07/15/16 06:59 18:59 Intake Total 1850 Output Total 800 Balance 1050 - Medications Medications: Current Medications Amlodipine Besylate (Norvasc) 5 mg PO DAILY [facility] Last Admin: 07/15/16 11:04 Dose: 5 mg Famotidine (Pepcid) 20 mg PO DAILY [facility] Last Admin: 07/15/16 11:04 Dose: 20 mg Hydrochlorothiazide (Microzide) 12.5 mg PO DAILY [facility] Last Admin: 07/15/16 11:04 Dose: 12.5 mg Ceftriaxone Sodium 2 gm/ (Sodium Chloride) 100 mls @ 100 mls/hr IVPB Q24H [facility] Last Admin: 07/14/16 20:16 Dose: 100 mls/hr Insulin Aspart (Novolog) 5 unit SC TIDAC [facility] Last Admin: 07/15/16 08:34 Dose: Not Given Insulin Glargine (Lantus) 9 unit SC HS [facility] Last Admin: 07/14/16 21:55 Dose: 9 units Ketoconazole (Nizoral) 0 gm TOP BID [facility] Last Admin: 07/15/16 11:05 Dose: 1 applic Losartan Potassium (Cozaar) 100 mg PO DAILY [facility] Last Admin: 07/15/16 11:04 Dose: 100 mg Msvtl-2-Ecku Ethyl Esters (Lovaza) 1 gm PO BID [facility] Last Admin: 07/15/16 11:04 Dose: 1 gm - Labs Labs: 07/15/16 07:20 07/15/16 07:20 PT 14.5 SECONDS (9.7-12.2) H 07/15/16 07:20 INR 1.3 07/15/16 07:20 APTT 30 SECONDS (21-34) 07/15/16 07:20 - Constitutional Appears: Non-toxic, No Acute Distress - Head Exam Head Exam: ATRAUMATIC, NORMOCEPHALIC - Eye Exam Eye Exam: EOMI, Normal appearance - ENT Exam ENT Exam: Mucous Membranes Moist - Neck Exam Neck Exam: Full ROM, Normal Inspection - Respiratory Exam Respiratory Exam: Clear to Ausculation Bilateral, NORMAL BREATHING PATTERN. absent: Rales, Rhonchi, Wheezes - Cardiovascular Exam Cardiovascular Exam: +S1, +S2 - GI/Abdominal Exam GI & Abdominal Exam: Soft, Normal Bowel Sounds. absent: Firm, Guarding, Tenderness - Extremities Exam Extremities Exam: Normal Inspection. absent: Pedal Edema, Tenderness - Neurological Exam Neurological Exam: Alert, Awake, Oriented x3 - Psychiatric Exam Psychiatric exam: Normal Affect, Normal Mood - Skin Additional comments: erythema and significant scaling to bilateral malar cheeks, glabella, chin and ears. Scale on an erythematous background noted to scalp. Assessment and Plan - Assessment and Plan (Free Text) Assessment: Cystitis Repeat UA negative UA: positive nitrates, 3+ leuokocyte esterase, 289 WBC, 4 RBC Urine Culture: E. Coli Blood culture growing gram negative navjot, organism - E. coli. Patient started on Rocephin 2 gm IVPB Q24H for E. coli bacteremia by ID, Dr. Metcalf (07/14) PSA elevated 10.9. Per Dr. Perales, patient will require follow-up in his office within 2 weeks following discharge from hospital to have PSA rechecked. discontinued Rocephin Given stat dose of Gentamicin ID, Dr. Metcalf, consulted. Help appreciated. Will continue on IV Zosyn while ID of organism pending. Normal Saline IV @100cc Urology , Dr. Perales, consulted - help appreciated KENDRA BUN/CR 21/1.1 Continue IV fluids Monitor Hepatomegaly history of alcohol use MRI Abdomen: Suboptimal examination due to patient motion and difficulty with breath hold. Inferior most liver incompletely imaged on post-contrast views. Subtle nodular hepatic contour. No focal hepatic mass identified on this limited study. 10 mm T1 hypo intense and T2 hyperintense T11 vertebral body rounded lesion, indeterminate. Recommend further evaluation with dedicated MRI without and with IV contrast for further characterization. Liver CT triple phase: Nodular hepatic contour compatible with cirrhosis. Hepatic steatosis. Hypoechoic rounded lesion identified in right hepatic lobe on ultrasound is not appreciated on the submitted views, possibly related to focal fatty sparing. Recommend MRI liver protocol for further evaluation and confirmation. Gallstone within gallbladder neck. Bibasilar atelectasis/ fibrosis. Trace bilateral pleural effusions. 18 mm right renal cyst. Bilateral too small to characterize renal hypodensities, statistically likely cysts. Enlarged heterogenous prostate gland. Abdominal Ultrasound: Probable hepatic cirrhosis. No hepatomegaly. 3.0 cm hypoechoic solid mass in right lobe of liver suspicious for hepatocellular neoplasm. GI, Dr. Colvin, consulted. Will follow-up AFP, autoimmune serologies, GGT, and fractionate bilirubin ordered by GI. Plan for triple phase CT of liver, possibly tomorrow. Patient instructed to have bring results of EGD/colonoscopy for review. Total bilirubin 2.0, Direct bilirubin 1.3, GGT 661, ALK Phos 186 Albumin 0.9 AFP 3.1 IgG 856.2, IgM 70.4 - negative AST/ALT: 77/83 Anti-Mitochondrial Ab and Anti-Smooth Muscle Ab - negative Hepatitis panel - negative Platelets 193 Coagulation profile: PT/PTT: 14.5/30 Facial Rash Clinically Rosacea/Sebo-Psoriasis Continue Ketoconazole cream to affected areas of face BID for 4 weeks Start Lidex 0.05% solution to hair every 12 hours Start Hydrocortisone 2.5 % cream to face BID for 2 weeks. Patient informed of triggers including coffee, alcohol, spicy food, and heat for rosacea KENDRICK - negative Monitor Hypertension Normotensive Continue home meds- Losartan 100mg po daily HCTZ 12.5mg po daily Amlodipine 5mg po daily Will monitor Diabetes Mellitus Hemoglobin a1c 6.3 Metformin 500mg BID on hold to r/o renal etiology Continue Novolog 5 units SC TIDAC and Lantus 9 units SC HS Accucheks ordered Hyperlipidemia Lipid panel: normal, however, low HDL of 20 Continue Lovaza 1 gm po BID Prophylaxis Heparin 5000 SC Q12 [facility] Pepcid 20 mg po daily <Eric Callaway - Last Filed: 07/16/16 09:15> Objective - Vital Signs/Intake and Output Vital Signs (last 24 hours): Temp Pulse Resp BP Pulse Ox 97.9 F 54 L 20 158/75 H 96 07/16/16 07:42 07/16/16 07:42 07/16/16 07:42 07/16/16 07:42 07/16/16 07:42 Intake and Output: 07/16/16 07/16/16 06:59 18:59 Intake Total 1100 Balance 1100 - Medications Medications: Current Medications Amlodipine Besylate (Norvasc) 5 mg PO DAILY [facility] Last Admin: 07/15/16 11:04 Dose: 5 mg Famotidine (Pepcid) 20 mg PO DAILY [facility] Last Admin: 07/15/16 11:04 Dose: 20 mg Fluocinonide (Lidex 0.05% Topical Solution) 0 ml TOP BID [facility] Last Admin: 07/15/16 18:45 Dose: 1 applic Heparin Sodium (Porcine) (Heparin) 5,000 units SC Q12H [facility] Last Admin: 07/16/16 05:43 Dose: 5,000 units Hydrochlorothiazide (Microzide) 12.5 mg PO DAILY [facility] Last Admin: 07/15/16 11:04 Dose: 12.5 mg Hydrocortisone (Cortizone 2.5%) 0 gm TOP BID [facility] Last Admin: 07/15/16 18:44 Dose: 1 applic Ceftriaxone Sodium 2 gm/ (Sodium Chloride) 100 mls @ 100 mls/hr IVPB Q24H [facility] Last Admin: 07/15/16 17:32 Dose: 100 mls/hr Insulin Aspart (Novolog) 5 unit SC TIDAC [facility] Last Admin: 07/16/16 08:17 Dose: 5 unit Insulin Glargine (Lantus) 9 unit SC HS [facility] Last Admin: 07/15/16 22:19 Dose: 9 units Ketoconazole (Nizoral) 0 gm TOP BID [facility] Last Admin: 07/15/16 17:30 Dose: 1 applic Losartan Potassium (Cozaar) 100 mg PO DAILY [facility] Last Admin: 07/15/16 11:04 Dose: 100 mg Aabkz-5-Mnfm Ethyl Esters (Lovaza) 1 gm PO BID [facility] Last Admin: 07/15/16 17:32 Dose: 1 gm - Labs Labs: 07/16/16 07:49 07/16/16 07:49 PT 13.7 SECONDS (9.7-12.2) H 07/16/16 07:49 INR 1.2 07/16/16 07:49 APTT 33 SECONDS (21-34) 07/16/16 07:49 Attending/Attestation - Attestation I have personally seen and examined this patient.: Yes I have fully participated in the care of the patient.: Yes I have reviewed all pertinent clinical information, including history, physical exam and plan: Yes Notes (Text): Medical attending: Patient was seen and examined by me, agrees the above note by medical anthropology director. When we saw the patient, he appeared to be doing better. For recent review of the microbiology shows that he does have positive Escherichia coli bacteremia. We need to continue with IV biotics and repeat the blood cultures very soon. I understand that he had additional imaging over the weekend to assess his liver. So at this time blood cultures follow the Escherichia coli currently the patient is on IV antibotic Thank you very much, Eric Callaway
[2016-07-15] MEDS ORDERED: Gadodiamide 287 MG/ML VIAL (15ML) IV ONE (11:53)
--- NOTE | 2016-07-15 12:55 | CP.PCM.PN ---
<Juli Rodriguez - Last Filed: 07/15/16 12:52> Subjective - Date & Time of Evaluation Date of Evaluation: 07/15/16 Time of Evaluation: 12:52 - Subjective Subjective: Gastroenterology Fellow/PGY4 Progress Note Patient feels well. Slept well overnight. Tolerating diet. Notes bowel movement. A 12-point review of systems negative except for as above. Objective - Vital Signs/Intake and Output Vital Signs (last 24 hours): Temp Pulse Resp BP Pulse Ox 97.4 F L 70 20 139/76 99 07/15/16 09:05 07/15/16 09:05 07/15/16 09:05 07/15/16 09:05 07/15/16 09:05 Intake and Output: 07/15/16 07/15/16 06:59 18:59 Intake Total 1850 Output Total 800 Balance 1050 - Medications Medications: Current Medications Amlodipine Besylate (Norvasc) 5 mg PO DAILY [facility] Last Admin: 07/15/16 11:04 Dose: 5 mg Famotidine (Pepcid) 20 mg PO DAILY [facility] Last Admin: 07/15/16 11:04 Dose: 20 mg Hydrochlorothiazide (Microzide) 12.5 mg PO DAILY [facility] Last Admin: 07/15/16 11:04 Dose: 12.5 mg Ceftriaxone Sodium 2 gm/ (Sodium Chloride) 100 mls @ 100 mls/hr IVPB Q24H [facility] Last Admin: 07/14/16 20:16 Dose: 100 mls/hr Insulin Aspart (Novolog) 5 unit SC TIDAC [facility] Last Admin: 07/15/16 08:34 Dose: Not Given Insulin Glargine (Lantus) 9 unit SC HS [facility] Last Admin: 07/14/16 21:55 Dose: 9 units Ketoconazole (Nizoral) 0 gm TOP BID [facility] Last Admin: 07/15/16 11:05 Dose: 1 applic Losartan Potassium (Cozaar) 100 mg PO DAILY [facility] Last Admin: 07/15/16 11:04 Dose: 100 mg Blnzc-9-[id number] Ethyl Esters (Lovaza) 1 gm PO BID [facility] Last Admin: 07/15/16 11:04 Dose: 1 gm - Labs Labs: 07/15/16 07:20 07/15/16 07:20 PT 14.5 SECONDS (9.7-12.2) H 07/15/16 07:20 INR 1.3 07/15/16 07:20 APTT 30 SECONDS (21-34) 07/15/16 07:20 - Constitutional Appears: Non-toxic, No Acute Distress - Head Exam Head Exam: ATRAUMATIC, NORMOCEPHALIC - Eye Exam Eye Exam: EOMI, PERRL Pupil Exam: PERRL. absent: Miosis, Mydriatic - ENT Exam ENT Exam: Mucous Membranes Moist, Normal Oropharynx - Neck Exam Neck Exam: Full ROM, Normal Inspection - Respiratory Exam Respiratory Exam: Clear to Ausculation Bilateral. absent: Rales, Rhonchi, Wheezes - Cardiovascular Exam Cardiovascular Exam: RRR, +S1, +S2. absent: Gallop, Rubs - GI/Abdominal Exam GI & Abdominal Exam: Soft, Normal Bowel Sounds. absent: Distended, Firm, Guarding, Rigid, Tenderness, Organomegaly, Rebound - Extremities Exam Extremities Exam: Full ROM. absent: Pedal Edema - Neurological Exam Neurological Exam: Alert, Awake - Psychiatric Exam Psychiatric exam: Normal Affect, Normal Mood - Skin Skin Exam: Dry, Intact, Normal Color, Warm Assessment and Plan - Assessment and Plan (Free Text) Assessment: 75 year old male with history of Hypertension, Diabetes, and Hyperlipidemia presenting with fever and dysuria. Active treatment of E coli UTI. 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 Laboratory findings with conjugated hyperbilirubinemia, coagulopathy, and elevated transaminases. Endorsed EGD and colonoscopy 1-2 years ago. Plan: >MELD 10, on admission >CT liver triple phase-lesion not seen, possibly focal fat sparing >ordered MRI Abdomen to further delineate >negative Hepatitis panel, IgA, IgG >AFP 3.1 >pending autoimmune workup >Ecoli Bacteremia and UTI >on zosyn >low sodium diet >strict I&Os >patient/ to provide EGD/colonoscopy reports performed 2 years ago >outpatient follow up with Dr. Colvin in [facility] for further workup <Ania Garza MD - Last Filed: 07/15/16 15:37> Objective - Vital Signs/Intake and Output Vital Signs (last 24 hours): Temp Pulse Resp BP Pulse Ox 97.4 F L 70 20 139/76 99 07/15/16 09:05 07/15/16 09:05 07/15/16 09:05 07/15/16 09:05 07/15/16 09:05 Intake and Output: 07/15/16 07/15/16 06:59 18:59 Intake Total 1850 Output Total 800 Balance 1050 - Medications Medications: Current Medications Amlodipine Besylate (Norvasc) 5 mg PO DAILY [facility] Last Admin: 07/15/16 11:04 Dose: 5 mg Famotidine (Pepcid) 20 mg PO DAILY [facility] Last Admin: 07/15/16 11:04 Dose: 20 mg Hydrochlorothiazide (Microzide) 12.5 mg PO DAILY [facility] Last Admin: 07/15/16 11:04 Dose: 12.5 mg Ceftriaxone Sodium 2 gm/ (Sodium Chloride) 100 mls @ 100 mls/hr IVPB Q24H [facility] Last Admin: 07/14/16 20:16 Dose: 100 mls/hr Insulin Aspart (Novolog) 5 unit SC TIDAC [facility] Last Admin: 07/15/16 13:50 Dose: Not Given Insulin Glargine (Lantus) 9 unit SC HS [facility] Last Admin: 07/14/16 21:55 Dose: 9 units Ketoconazole (Nizoral) 0 gm TOP BID [facility] Last Admin: 07/15/16 11:05 Dose: 1 applic Losartan Potassium (Cozaar) 100 mg PO DAILY [facility] Last Admin: 07/15/16 11:04 Dose: 100 mg [id number]-0-Gfnz Ethyl Esters (Lovaza) 1 gm PO BID [facility] Last Admin: 07/15/16 11:04 Dose: 1 gm - Labs Labs: 07/15/16 07:20 07/15/16 07:20 PT 14.5 SECONDS (9.7-12.2) H 07/15/16 07:20 INR 1.3 07/15/16 07:20 APTT 30 SECONDS (21-34) 07/15/16 07:20 Attending/Attestation - Attestation I have personally seen and examined this patient.: Yes I have fully participated in the care of the patient.: Yes I have reviewed all pertinent clinical information, including history, physical exam and plan: Yes Notes (Text): 07/15/16 15:30 Patient seen and examined with GI fellow on rounds this am. This is a 75 year old male with history of Hypertension, Diabetes, and Hyperlipidemia presenting with fever and dysuria. Active treatment of E coli UTI. Ultrasound showed a solid 2.8 x 2.1 x 3 cm mass, cirrhosis, and cholelithiasis. Laboratory findings with conjugated hyperbilirubinemia, coagulopathy, and elevated transaminases. Ct triple phase and MRI liver shows no liver lesions but nodular contour. Negative hepatitis panel and autoimmune serologies. Treat E coli bacteremia and follow with Dr Reynolds in GI clinic. EGD/ colonoscopy 2 years ago.
--- NOTE | 2016-07-15 14:09 | MRI ---
MRI abdomen without/with IV contrast Indication: Liver lesion on ultrasound, not seen on CT Technique: Multiplanar, multi sequence magnetic resonance images of the abdomen were obtained without and with the administration of intravenous gadolinium using a multi phase abdomen protocol. A total of 975 images submitted for review Comparison: Abdominal ultrasound performed 07/11/16, triple phase liver CT performed 07/14/16 Findings: Suboptimal examination due to patient motion and difficulty with breath hold. Inferior most liver incompletely imaged on post-contrast views. Subtle nodular hepatic contour. No focal hepatic mass identified. No intrahepatic biliary ductal dilatation appreciated. Nonenhancing bilateral renal lesions measuring up to 17 mm on the right consistent with cysts. No hydronephrosis. No obstructing renal calculus. The kidneys enhance symmetrically. Gallstone best visualized on recent CT. The spleen, pancreas, and adrenal glands appear unremarkable. No bulky adenopathy appreciated. Proximal duodenal diverticulum. Small hiatal hernia. Limited views of the inferior thorax appear unremarkable. 10 mm T1 hypo intense and T2 hyperintense T11 vertebral body rounded lesion, indeterminate. Impression: Suboptimal examination due to patient motion and difficulty with breath hold. Inferior most liver incompletely imaged on post-contrast views. Subtle nodular hepatic contour ; correlate for cirrhosis. No focal hepatic mass identified on this limited study. 10 mm T1 hypo intense and T2 hyperintense T11 vertebral body rounded lesion, indeterminate. Recommend further evaluation with dedicated MRI without and with IV contrast for further characterization. Additional findings as above.
[2016-07-15] MEDS: cefTRIAXone 2 GM in Sodium Chloride 0.9% 100 ML IVPB SCH (17:32)
[2016-07-15] MEDS: Hydrocortisone 2.5% Oint (20 gm) TOP SCH (18:44)
[2016-07-15] MEDS: FLUOCINONIDE 0.05% TOP SCH (18:45)
[2016-07-15] MEDS: Sodium Chloride 0.9% 1,000 ML IV SCH (21:20)
[2016-07-15] MEDS: (Lantus) Insulin Glargine, Recombinant SC SCH (22:19)
--- NOTE | 2016-07-16 07:58 | CP.PCM.PN ---
<GennaValeria - Last Filed: 07/16/16 12:57> Subjective - Date & Time of Evaluation Date of Evaluation: 07/16/16 Time of Evaluation: 07:57 - Subjective Subjective: Patient seen and examined at bedside. No acute events overnight. Patient denies fever, chills, pain with urination, difficulty urinating, abdominal/pelvic pain , nausea, and vomiting. Patient denies chest pain and shortness of breath. Objective - Vital Signs/Intake and Output Vital Signs (last 24 hours): Temp Pulse Resp BP Pulse Ox 97.9 F 54 L 20 158/75 H 96 07/16/16 07:42 07/16/16 07:42 07/16/16 07:42 07/16/16 07:42 07/16/16 07:42 Intake and Output: 07/16/16 07/16/16 06:59 18:59 Intake Total 1100 Balance 1100 - Medications Medications: Current Medications Amlodipine Besylate (Norvasc) 5 mg PO DAILY [facility] Last Admin: 07/15/16 11:04 Dose: 5 mg Famotidine (Pepcid) 20 mg PO DAILY [facility] Last Admin: 07/15/16 11:04 Dose: 20 mg Fluocinonide (Lidex 0.05% Topical Solution) 0 ml TOP BID [facility] Last Admin: 07/15/16 18:45 Dose: 1 applic Heparin Sodium (Porcine) (Heparin) 5,000 units SC Q12H [facility] Last Admin: 07/16/16 05:43 Dose: 5,000 units Hydrochlorothiazide (Microzide) 12.5 mg PO DAILY [facility] Last Admin: 07/15/16 11:04 Dose: 12.5 mg Hydrocortisone (Cortizone 2.5%) 0 gm TOP BID [facility] Last Admin: 07/15/16 18:44 Dose: 1 applic Ceftriaxone Sodium 2 gm/ (Sodium Chloride) 100 mls @ 100 mls/hr IVPB Q24H [facility] Last Admin: 07/15/16 17:32 Dose: 100 mls/hr Insulin Aspart (Novolog) 5 unit SC TIDAC [facility] Last Admin: 07/15/16 17:27 Dose: 5 unit Insulin Glargine (Lantus) 9 unit SC HS [facility] Last Admin: 07/15/16 22:19 Dose: 9 units Ketoconazole (Nizoral) 0 gm TOP BID [facility] Last Admin: 07/15/16 17:30 Dose: 1 applic Losartan Potassium (Cozaar) 100 mg PO DAILY [facility] Last Admin: 07/15/16 11:04 Dose: 100 mg Knrtf-3-Tjoj Ethyl Esters (Lovaza) 1 gm PO BID [facility] Last Admin: 07/15/16 17:32 Dose: 1 gm - Labs Labs: 07/15/16 07:20 07/15/16 07:20 PT 14.5 SECONDS (9.7-12.2) H 07/15/16 07:20 INR 1.3 07/15/16 07:20 APTT 30 SECONDS (21-34) 07/15/16 07:20 - Constitutional Appears: Non-toxic, No Acute Distress - Head Exam Head Exam: ATRAUMATIC, NORMAL INSPECTION, NORMOCEPHALIC - Eye Exam Eye Exam: EOMI, Normal appearance, PERRL - ENT Exam ENT Exam: Mucous Membranes Moist - Respiratory Exam Respiratory Exam: Clear to Ausculation Bilateral, NORMAL BREATHING PATTERN. absent: Rales, Rhonchi, Wheezes - Cardiovascular Exam Cardiovascular Exam: +S1, +S2. absent: Tachycardia - GI/Abdominal Exam GI & Abdominal Exam: Soft, Normal Bowel Sounds. absent: Tenderness - Back Exam Back Exam: NORMAL INSPECTION. absent: CVA tenderness (L), CVA tenderness (R) - Neurological Exam Neurological Exam: Alert, Awake, Oriented x3 - Psychiatric Exam Psychiatric exam: Normal Affect, Normal Mood - Skin Additional comments: Scaling more controlled. Erythema improving Assessment and Plan - Assessment and Plan (Free Text) Assessment: Cystitis f/u repeat Blood culture. If negative, patient can be discharged with po antibiotic x 14 days. Repeat UA negative UA: positive nitrates, 3+ leuokocyte esterase, 289 WBC, 4 RBC Urine Culture: E. Coli Blood culture growing gram negative navjot, organism - E. coli. Patient started on Rocephin 2 gm IVPB Q24H for E. coli bacteremia by ID, Dr. Metcalf (07/14) PSA elevated 10.9. Per Dr. Perales, patient will require follow-up in his office within 2 weeks following discharge from hospital to have PSA rechecked. discontinued Rocephin Given stat dose of Gentamicin ID, Dr. Metcalf, consulted. Help appreciated. Will continue on IV Zosyn while ID of organism pending. Normal Saline IV @100cc Urology , Dr. Perales, consulted - help appreciated KENDRA BUN/CR 20/1.1 Continue IV fluids Monitor Hepatomegaly history of alcohol use MRI Abdomen: Suboptimal examination due to patient motion and difficulty with breath hold. Inferior most liver incompletely imaged on post-contrast views. Subtle nodular hepatic contour. No focal hepatic mass identified on this limited study. 10 mm T1 hypo intense and T2 hyperintense T11 vertebral body rounded lesion, indeterminate. Recommend further evaluation with dedicated MRI without and with IV contrast for further characterization. Liver CT triple phase: Nodular hepatic contour compatible with cirrhosis. Hepatic steatosis. Hypoechoic rounded lesion identified in right hepatic lobe on ultrasound is not appreciated on the submitted views, possibly related to focal fatty sparing. Recommend MRI liver protocol for further evaluation and confirmation. Gallstone within gallbladder neck. Bibasilar atelectasis/ fibrosis. Trace bilateral pleural effusions. 18 mm right renal cyst. Bilateral too small to characterize renal hypodensities, statistically likely cysts. Enlarged heterogenous prostate gland. Abdominal Ultrasound: Probable hepatic cirrhosis. No hepatomegaly. 3.0 cm hypoechoic solid mass in right lobe of liver suspicious for hepatocellular neoplasm. GI, Dr. Colvin, consulted. Will follow-up AFP, autoimmune serologies, GGT, and fractionate bilirubin ordered by GI. Plan for triple phase CT of liver, possibly tomorrow. Patient instructed to have bring results of EGD/colonoscopy for review. Total bilirubin 2.0, Direct bilirubin 1.3, GGT 661, ALK Phos 186 Albumin 0.9 AFP 3.1 IgG 856.2, IgM 70.4 - negative AST/ALT: 77/92 Anti-Mitochondrial Ab and Anti-Smooth Muscle Ab - negative Hepatitis panel - negative Platelets 199 Coagulation profile: PT/PTT: 13.7/33 INR 1,2 Facial Rash Clinically Rosacea/Sebo-Psoriasis Continue Ketoconazole cream to affected areas of face BID for 4 weeks Start Lidex 0.05% solution to hair every 12 hours Start Hydrocortisone 2.5 % cream to face BID for 2 weeks. Patient informed of triggers including coffee, alcohol, spicy food, and heat for rosacea KENDRICK - negative Monitor Hypertension Normotensive Continue home meds- Losartan 100mg po daily HCTZ 12.5mg po daily Amlodipine 5mg po daily Will monitor Diabetes Mellitus Glucose more controlled -112 Hemoglobin a1c 6.3 Metformin 500mg BID discontinued due to liver cirrhosis Continue Novolog 5 units SC TIDAC and Lantus 9 units SC HS Accucheks ordered Hyperlipidemia Lipid panel: normal, however, low HDL of 20 Continue Lovaza 1 gm po BID Prophylaxis Heparin 5000 SC Q12 SCD Pepcid 20 mg po daily Dispo Patient to follow-up in the [facility] clinic within one week of discharge from the hospital. Patient to follow-up with Lung Puller, Dr. Colvin, within one week of discharge from the hospital. <Luis Mtz - Last Filed: 08/16/16 10:16> Objective - Vital Signs/Intake and Output Vital Signs (last 24 hours): Temp Pulse Resp BP Pulse Ox 97.5 F L 71 20 136/77 98 07/17/16 15:15 07/17/16 15:15 07/17/16 15:15 07/17/16 15:15 07/17/16 15:15 - Labs Labs: 07/17/16 07:01 07/17/16 07:01 PT 13.2 SECONDS (9.7-12.2) H 07/17/16 07:01 INR 1.2 07/17/16 07:01 APTT 34 SECONDS (21-34) 07/17/16 07:01 Attending/Attestation - Attestation I have personally seen and examined this patient.: Yes I have fully participated in the care of the patient.: Yes I have reviewed all pertinent clinical information, including history, physical exam and plan: Yes Notes (Text): Patient seen and examined with the resident. Agree with the resident's evaluation, assessment and plan. Cystitis Acute Renal Failure Hepatomegaly
[2016-07-16 08:06] LABS: BASO # 0.1 K/uL (0.0-0.2); BASO % 0.6 % (0.0-2.0); EOS # 0.5 K/uL (0.0-0.7); EOS % 5.4 % (0.0-4.0); HEMATOCRIT 35.8 % (35.0-51.0); LYMPH # 1.5 K/uL (1.0-4.3); LYMPH % 18.3 % (20.0-40.0); MEAN CELL VOLUME 96.2 fL (80.0-94.0); MEAN CORPUSCULAR HEMOGLOBIN 33.6 pg (27.0-31.0); MEAN CORPUSCULAR HGB CONC 34.9 g/dL (33.0-37.0); MEAN PLATELET VOLUME 10.8 fL (7.2-11.7); MONO # 0.8 K/uL (0.0-0.8); MONO % 9.3 % (0.0-10.0); RED CELL DISTRIBUTION WIDTH 13.5 % (11.5-14.5); WHITE BLOOD COUNT 8.4 K/uL (4.8-10.8)
[2016-07-16 08:13] LABS: CHLORIDE 106 mmol/L (98-107); POTASSIUM 4.1 mmol/L (3.6-5.2); SODIUM 139 mmol/L (132-148)
[2016-07-16 08:15] LABS: BILIRUBIN,TOTAL 1.1 mg/dL (0.2-1.3); GFR AFRICAN-AMERICAN > 60
[2016-07-16 08:16] LABS: ALB/GLOB RATIO 0.9 (1.0-2.1); ALKALINE PHOSPHATASE 199 U/L (38-126); ALT/SGPT 92 U/L (21-72); AST/SGOT 76 U/L (17-59); BLOOD UREA NITROGEN 20 mg/dL (9-20); CALCIUM 8.7 mg/dl (8.6-10.4); CARBON DIOXIDE 20 mmol/L (22-30); GLUCOSE,RANDOM 114 mg/dL (75-110); MAGNESIUM 2.2 mg/dL (1.6-2.3); TOTAL PROTEIN 6.9 g/dL (6.3-8.3)
[2016-07-16] MEDS: (Novolog) Insulin Aspart, Recombinant 100 u/ml 10 ml vial SC SCH ×3 (08:17→16:30)
[2016-07-16 08:18] LABS: INR 1.2
[2016-07-16] MEDS: Omega-3-Acid Ethyl Esters 1 GM Cap PO SCH ×2 (10:32→17:35)
[2016-07-16] MEDS: FLUOCINONIDE 0.05% TOP SCH ×2 (10:32→21:51)
[2016-07-16] MEDS: Hydrocortisone 2.5% Oint (20 gm) TOP SCH ×2 (10:34→17:31)
--- NOTE | 2016-07-16 12:55 | CP.PCM.PN ---
Subjective - Date & Time of Evaluation Date of Evaluation: 07/16/16 Time of Evaluation: 06:00 - Subjective Subjective: iv rx in progress will need 14 days rx Objective - Vital Signs/Intake and Output Vital Signs (last 24 hours): Temp Pulse Resp BP Pulse Ox 97.9 F 54 L 20 158/75 H 96 07/16/16 07:42 07/16/16 07:42 07/16/16 07:42 07/16/16 07:42 07/16/16 07:42 Intake and Output: 07/16/16 07/16/16 06:59 18:59 Intake Total 1100 Balance 1100 - Medications Medications: Current Medications Amlodipine Besylate (Norvasc) 5 mg PO DAILY [facility] Last Admin: 07/16/16 10:32 Dose: 5 mg Famotidine (Pepcid) 20 mg PO DAILY [facility] Last Admin: 07/16/16 10:32 Dose: 20 mg Fluocinonide (Lidex 0.05% Topical Solution) 0 ml TOP BID [facility] Last Admin: 07/16/16 10:32 Dose: 1 applic Heparin Sodium (Porcine) (Heparin) 5,000 units SC Q12H [facility] Last Admin: 07/16/16 05:43 Dose: 5,000 units Hydrochlorothiazide (Microzide) 12.5 mg PO DAILY [facility] Last Admin: 07/16/16 10:32 Dose: 12.5 mg Hydrocortisone (Cortizone 2.5%) 0 gm TOP BID [facility] Last Admin: 07/16/16 10:34 Dose: 1 applic Ceftriaxone Sodium 2 gm/ (Sodium Chloride) 100 mls @ 100 mls/hr IVPB Q24H [facility] Last Admin: 07/15/16 17:32 Dose: 100 mls/hr Insulin Aspart (Novolog) 5 unit SC TIDAC [facility] Last Admin: 07/16/16 12:04 Dose: 5 unit Insulin Glargine (Lantus) 9 unit SC HS [facility] Last Admin: 07/15/16 22:19 Dose: 9 units Ketoconazole (Nizoral) 0 gm TOP BID [facility] Last Admin: 07/16/16 10:35 Dose: 1 applic Losartan Potassium (Cozaar) 100 mg PO DAILY [facility] Last Admin: 07/16/16 10:32 Dose: 100 mg Ceesy-2-Dkwm Ethyl Esters (Lovaza) 1 gm PO BID [facility] Last Admin: 07/16/16 10:32 Dose: 1 gm - Labs Labs: 07/16/16 07:49 07/16/16 07:49 PT 13.7 SECONDS (9.7-12.2) H 07/16/16 07:49 INR 1.2 07/16/16 07:49 APTT 33 SECONDS (21-34) 07/16/16 07:49 Assessment and Plan (1) Bacteremia Status: Acute (2) Bacteremia Status: Acute (3) Pyelonephritis Status: Acute
[2016-07-16] MEDS: cefTRIAXone 2 GM in Sodium Chloride 0.9% 100 ML IVPB SCH (17:37)
[2016-07-16] MEDS: Sodium Chloride 0.9% 1,000 ML IV SCH (17:38)
[2016-07-16] MEDS: (Lantus) Insulin Glargine, Recombinant SC SCH (21:42)
[2016-07-17 07:18] LABS: BASO # 0.1 K/uL (0.0-0.2); BASO % 0.7 % (0.0-2.0); EOS # 0.4 K/uL (0.0-0.7); EOS % 5.6 % (0.0-4.0); HEMATOCRIT 36.5 % (35.0-51.0); INR 1.2; LYMPH # 1.5 K/uL (1.0-4.3); LYMPH % 19.3 % (20.0-40.0); MEAN CELL VOLUME 97.5 fL (80.0-94.0); MEAN CORPUSCULAR HEMOGLOBIN 33.5 pg (27.0-31.0); MEAN CORPUSCULAR HGB CONC 34.3 g/dL (33.0-37.0); MEAN PLATELET VOLUME 10.9 fL (7.2-11.7); MONO # 0.7 K/uL (0.0-0.8); MONO % 8.8 % (0.0-10.0); RED CELL DISTRIBUTION WIDTH 13.6 % (11.5-14.5); WHITE BLOOD COUNT 7.9 K/uL (4.8-10.8)
--- NOTE | 2016-07-17 07:36 | CP.PCM.PN ---
<GennaValeria - Last Filed: 07/17/16 07:33> Subjective - Date & Time of Evaluation Date of Evaluation: 07/17/16 Time of Evaluation: 07:33 - Subjective Subjective: Patient seen and examined at bedside. Patient is resting comfortably with no complaints. Patient is anxious to be discharged from the hospital. He denies discomfort on urination, increased urinary frequency, abdominal pain, fever, chills, shortness of breath, and chest pain. Patient tolerating diet and having normal bowel movements. Objective - Vital Signs/Intake and Output Vital Signs (last 24 hours): Temp Pulse Resp BP Pulse Ox 98.3 F 69 20 143/70 95 07/17/16 01:00 07/17/16 01:00 07/17/16 01:00 07/17/16 01:00 07/17/16 01:00 Intake and Output: 07/17/16 07/17/16 06:59 18:59 Intake Total 900 Balance 900 - Medications Medications: Current Medications Amlodipine Besylate (Norvasc) 5 mg PO DAILY [facility] Last Admin: 07/16/16 10:32 Dose: 5 mg Famotidine (Pepcid) 20 mg PO DAILY [facility] Last Admin: 07/16/16 10:32 Dose: 20 mg Fluocinonide (Lidex 0.05% Topical Solution) 0 ml TOP BID [facility] Last Admin: 07/16/16 21:51 Dose: Not Given Heparin Sodium (Porcine) (Heparin) 5,000 units SC Q12H [facility] Last Admin: 07/17/16 05:25 Dose: 5,000 units Hydrochlorothiazide (Microzide) 12.5 mg PO DAILY [facility] Last Admin: 07/16/16 10:32 Dose: 12.5 mg Hydrocortisone (Cortizone 2.5%) 0 gm TOP BID [facility] Last Admin: 07/16/16 17:31 Dose: 1 applic Ceftriaxone Sodium 2 gm/ (Sodium Chloride) 100 mls @ 100 mls/hr IVPB Q24H [facility] Last Admin: 07/16/16 17:37 Dose: 100 mls/hr Insulin Aspart (Novolog) 5 unit SC TIDAC [facility] Last Admin: 07/16/16 16:30 Dose: 5 unit Insulin Glargine (Lantus) 9 unit SC HS [facility] Last Admin: 07/16/16 21:42 Dose: 9 units Ketoconazole (Nizoral) 0 gm TOP BID [facility] Last Admin: 07/16/16 17:33 Dose: 1 applic Losartan Potassium (Cozaar) 100 mg PO DAILY [facility] Last Admin: 07/16/16 10:32 Dose: 100 mg [id number] Ethyl Esters (Lovaza) 1 gm PO BID [facility] Last Admin: 07/16/16 17:35 Dose: 1 gm - Labs Labs: 07/16/16 07:49 07/16/16 07:49 PT 13.2 SECONDS (9.7-12.2) H 07/17/16 07:01 INR 1.2 07/17/16 07:01 APTT 34 SECONDS (21-34) 07/17/16 07:01 - Constitutional Appears: Non-toxic, No Acute Distress - Head Exam Head Exam: ATRAUMATIC, NORMAL INSPECTION, NORMOCEPHALIC - Eye Exam Eye Exam: EOMI, Normal appearance - ENT Exam ENT Exam: Mucous Membranes Moist - Neck Exam Neck Exam: Normal Inspection - Respiratory Exam Respiratory Exam: Clear to Ausculation Bilateral, NORMAL BREATHING PATTERN. absent: Rales, Rhonchi, Wheezes - Cardiovascular Exam Cardiovascular Exam: +S1, +S2. absent: Tachycardia - GI/Abdominal Exam GI & Abdominal Exam: Soft, Normal Bowel Sounds. absent: Guarding, Rigid, Tenderness - Extremities Exam Extremities Exam: Normal Inspection. absent: Pedal Edema, Tenderness - Neurological Exam Neurological Exam: Alert, Awake, Oriented x3 - Psychiatric Exam Psychiatric exam: Normal Affect, Normal Mood - Skin Additional comments: erythema with scale to malar cheeks, glabella and chin. Significant scale to scalp. Improving. Assessment and Plan - Assessment and Plan (Free Text) Assessment: Cystitis f/u repeat Blood culture. If negative, patient can be discharged with po antibiotic x 14 days. Repeat UA negative UA: positive nitrates, 3+ leuokocyte esterase, 289 WBC, 4 RBC Urine Culture: E. Coli Blood culture growing gram negative navjot, organism - E. coli. Patient started on Rocephin 2 gm IVPB Q24H for E. coli bacteremia by ID, Dr. Metcalf (07/14) PSA elevated 10.9. Per Dr. Perales, patient will require follow-up in his office within 2 weeks following discharge from hospital to have PSA rechecked. discontinued Rocephin Given stat dose of Gentamicin ID, Dr. Metcalf, consulted. Help appreciated. Will continue on IV Zosyn while ID of organism pending. Normal Saline IV @100cc Urology , Dr. Perales, consulted - help appreciated KENDRA Improved to baseline Monitor Hepatomegaly history of alcohol use GI, Dr. Colvin, consulted. Will follow-up AFP, autoimmune serologies, GGT, and fractionate bilirubin ordered by GI. Plan for triple phase CT of liver, possibly tomorrow. Patient instructed to have bring results of EGD/colonoscopy for review. Total bilirubin 2.0, Direct bilirubin 1.3, GGT 661, ALK Phos 186 Albumin 0.9 AFP 3.1 IgG 856.2, IgM 70.4 - negative AST/ALT: 75/104 Anti-Mitochondrial Ab and Anti-Smooth Muscle Ab - negative Hepatitis panel - negative Platelets 199 Coagulation profile: PT/PTT: 13.2/34 INR 1.2 MRI Abdomen: Suboptimal examination due to patient motion and difficulty with breath hold. Inferior most liver incompletely imaged on post-contrast views. Subtle nodular hepatic contour. No focal hepatic mass identified on this limited study. 10 mm T1 hypo intense and T2 hyperintense T11 vertebral body rounded lesion, indeterminate. Recommend further evaluation with dedicated MRI without and with IV contrast for further characterization. Liver CT triple phase: Nodular hepatic contour compatible with cirrhosis. Hepatic steatosis. Hypoechoic rounded lesion identified in right hepatic lobe on ultrasound is not appreciated on the submitted views, possibly related to focal fatty sparing. Recommend MRI liver protocol for further evaluation and confirmation. Gallstone within gallbladder neck. Bibasilar atelectasis/ fibrosis. Trace bilateral pleural effusions. 18 mm right renal cyst. Bilateral too small to characterize renal hypodensities, statistically likely cysts. Enlarged heterogenous prostate gland. Abdominal Ultrasound: Probable hepatic cirrhosis. No hepatomegaly. 3.0 cm hypoechoic solid mass in right lobe of liver suspicious for hepatocellular neoplasm. Facial Rash Clinically Rosacea/Sebo-Psoriasis Continue Ketoconazole cream to affected areas of face BID for 4 weeks Continue Lidex 0.05% solution to hair every 12 hours Continue Hydrocortisone 2.5 % cream to face BID for 2 weeks. Patient informed of triggers including coffee, alcohol, spicy food, and heat for rosacea KENDRICK - negative Monitor Hypertension Normotensive Continue home meds- Losartan 100mg po daily HCTZ 12.5mg po daily Amlodipine 5mg po daily Will monitor Diabetes Mellitus Glucose more controlled -122 Hemoglobin a1c 6.3 Metformin 500mg BID discontinued due to liver cirrhosis Continue Novolog 5 units SC TIDAC and Lantus 9 units SC HS Accucheks ordered Hyperlipidemia Lipid panel: normal, however, low HDL of 20 Continue Lovaza 1 gm po BID Prophylaxis Heparin 5000 SC Q12 SCD Pepcid 20 mg po daily Dispo Patient to follow-up in the [facility] within one week of discharge from the hospital. Patient to complete 14 day course of oral antibiotic therapy for blood infection. Patient to discontinue using Metformin for diabetes management due to liver cirrhosis. Patient to resume all other home medications as previously prescribed. Patient to be started on Januvia for Diabetes Mellitus management. Patient to continue using Ketoconazole cream to affected areas of face twice daily until facial rash improved. Patient to also continue use of Lidex 0.05% solution to hair twice daily for one week. Patient to establish care and follow-up in the [facility] within one week of discharge from the hospital. Patient to follow-up with [facility] (Dr. Colvin) within one week of discharge from the hospital. Patient to follow-up with Urologist (Dr. Trivedi) within one week of discharge from hospital. Patient to have repeat PSA. <Luis Mtz - Last Filed: 08/16/16 10:23> Objective - Vital Signs/Intake and Output Vital Signs (last 24 hours): Temp Pulse Resp BP Pulse Ox 97.5 F L 71 20 136/77 98 07/17/16 15:15 07/17/16 15:15 07/17/16 15:15 07/17/16 15:15 07/17/16 15:15 - Labs Labs: 07/17/16 07:01 07/17/16 07:01 PT 13.2 SECONDS (9.7-12.2) H 07/17/16 07:01 INR 1.2 07/17/16 07:01 APTT 34 SECONDS (21-34) 07/17/16 07:01 Attending/Attestation - Attestation I have personally seen and examined this patient.: Yes I have fully participated in the care of the patient.: Yes I have reviewed all pertinent clinical information, including history, physical exam and plan: Yes Notes (Text): Patient seen and examined with the resident. Agree with the resident's evaluation, assessment and plan. Cystitis KENDRA -acute renal failure resolved Hepatomegaly due to history of alcohol use
[2016-07-17 07:38] LABS: CHLORIDE 105 mmol/L (98-107); POTASSIUM 4.4 mmol/L (3.6-5.2); SODIUM 139 mmol/L (132-148)
[2016-07-17 07:40] LABS: CARBON DIOXIDE 21 mmol/L (22-30); GFR AFRICAN-AMERICAN > 60
[2016-07-17 07:41] LABS: ALB/GLOB RATIO 0.9 (1.0-2.1); ALKALINE PHOSPHATASE 253 U/L (38-126); ALT/SGPT 104 U/L (21-72); AST/SGOT 75 U/L (17-59); BLOOD UREA NITROGEN 18 mg/dL (9-20); CALCIUM 8.8 mg/dl (8.6-10.4); GLUCOSE,RANDOM 122 mg/dL (75-110); MAGNESIUM 2.2 mg/dL (1.6-2.3); TOTAL PROTEIN 7.4 g/dL (6.3-8.3)
[2016-07-17] MEDS: Omega-3-Acid Ethyl Esters 1 GM Cap PO SCH (10:35)
[2016-07-17] MEDS: (Novolog) Insulin Aspart, Recombinant 100 u/ml 10 ml vial SC SCH ×3 (10:36→16:09)
[2016-07-17] MEDS: FLUOCINONIDE 0.05% TOP SCH (10:39)
[2016-07-17] MEDS: Hydrocortisone 2.5% Oint (20 gm) TOP SCH (10:39)
[2016-07-17 16:54] VITALS: BP 136/77; PULSE 71; TEMP 97.5; O2SAT 98
--- NOTE | 2016-07-17 22:07 | CP.PCM.DIS ---
<EmanuelnevaValeria - Last Filed: 07/18/16 21:33> Provider - Provider Date of Admission: 07/11/16 12:33 Attending physician: Jignesh Montgomery MD Primary care physician: Dr. Kaplan Consults: RONNI, Dr. Metcalf Urology, Dr. Perales GI, Dr. Colvin Time Spent in preparation of Discharge (in minutes): 31 Diagnosis - Discharge Diagnosis (1) Abnormal MRI Status: Acute (2) Cirrhosis Status: Acute (3) Diabetes Status: Acute (4) Hypertension Status: Acute (5) Cystitis Status: Acute (6) Sebopsoriasis Status: Acute (7) Bacteremia Status: Acute Hospital Course - Lab Results Lab Results: Micro Results 07/16/16 12:23 Blood Blood Culture - Preliminary NO GROWTH AFTER 24 HOURS 07/16/16 13:30 Blood Blood Culture - Preliminary NO GROWTH AFTER 24 HOURS 07/15/16 07:20 Blood-Venous Blood Culture - Preliminary NO GROWTH AFTER 48 HOURS 07/15/16 07:20 Blood-Venous Blood Culture - Preliminary NO GROWTH AFTER 48 HOURS 07/11/16 14:59 Urine Urine Culture - Final No Growth (<1,000 CFU/ML) Most Recent Lab Values WBC 7.9 K/uL (4.8-10.8) 07/17/16 07:01 RBC 3.74 Mil/uL (4.40-5.90) L 07/17/16 07:01 Hgb 12.5 g/dL (12.0-18.0) 07/17/16 07:01 Hct 36.5 % (35.0-51.0) 07/17/16 07:01 MCV 97.5 fL (80.0-94.0) H 07/17/16 07:01 MCH 33.5 pg (27.0-31.0) H 07/17/16 07:01 MCHC 34.3 g/dL (33.0-37.0) 07/17/16 07:01 RDW 13.6 % (11.5-14.5) 07/17/16 07:01 Plt Count 221 K/uL (130-400) 07/17/16 07:01 MPV 10.9 fL (7.2-11.7) 07/17/16 07:01 Neut % (Auto) 65.6 % (50.0-75.0) 07/17/16 07:01 Lymph % (Auto) 19.3 % (20.0-40.0) L 07/17/16 07:01 [place] % (Auto) 8.8 % (0.0-10.0) 07/17/16 07:01 Eos % (Auto) 5.6 % (0.0-4.0) H 07/17/16 07:01 Baso % (Auto) 0.7 % (0.0-2.0) 07/17/16 07:01 Neut # 5.2 K/uL (1.8-7.0) 07/17/16 07:01 Lymph # 1.5 K/uL (1.0-4.3) 07/17/16 07:01 [place] # 0.7 K/uL (0.0-0.8) 07/17/16 07:01 Eos # 0.4 K/uL (0.0-0.7) 07/17/16 07:01 Baso # 0.1 K/uL (0.0-0.2) 07/17/16 07:01 Neutrophils % (Manual) 81 % (50-75) H 07/12/16 06:20 Band Neutrophils % 5 % (0-2) H 07/12/16 06:20 Lymphocytes % (Manual) 8 % (20-40) L 07/12/16 06:20 Monocytes % (Manual) 6 % (0-10) 07/12/16 06:20 Basophils % (Manual) 1 % (0-2) 07/11/16 11:52 Platelet Estimate Normal (NORMAL) 07/12/16 06:20 Large Platelets Present 07/11/16 11:52 RBC Morphology Normal 07/12/16 06:20 PT 13.2 SECONDS (9.7-12.2) H 07/17/16 07:01 INR 1.2 07/17/16 07:01 APTT 34 SECONDS (21-34) 07/17/16 07:01 Sodium 139 mmol/L (132-148) 07/17/16 07:01 Potassium 4.4 mmol/L (3.6-5.2) 07/17/16 07:01 Chloride 105 mmol/L (98-107) 07/17/16 07:01 Carbon Dioxide 21 mmol/L (22-30) L 07/17/16 07:01 Anion Gap 17 (10-20) 07/17/16 07:01 BUN 18 mg/dL (9-20) 07/17/16 07:01 Creatinine 1.1 MG/DL (0.8-1.5) 07/17/16 07:01 Est GFR ( Amer) > 60 07/17/16 07:01 Est GFR (Non-Af Amer) > 60 07/17/16 07:01 POC Glucose (mg/dL) 239 mg/dL (65-110) H 07/17/16 16:11 Random Glucose 122 mg/dL (75-110) H 07/17/16 07:01 Hemoglobin A1c 6.3 % (4.2-6.5) 07/12/16 06:20 Calcium 8.8 mg/dl (8.6-10.4) 07/17/16 07:01 Magnesium 2.2 mg/dL (1.6-2.3) 07/17/16 07:01 Total Bilirubin 1.0 mg/dL (0.2-1.3) 07/17/16 07:01 Direct Bilirubin 1.3 mg/dL (0.0-0.4) H 07/13/16 06:31 GGT 661 U/L (8-78) H 07/13/16 06:31 AST 75 U/L (17-59) H 07/17/16 07:01 ALT 104 U/L (21-72) H 07/17/16 07:01 Alkaline Phosphatase 253 U/L (38-126) H D 07/17/16 07:01 Total Protein 7.4 g/dL (6.3-8.3) 07/17/16 07:01 Albumin 3.5 g/dL (3.5-5.0) 07/17/16 07:01 Globulin 3.9 gm/dL (2.2-3.9) 07/17/16 07:01 Albumin/Globulin Ratio 0.9 (1.0-2.1) L 07/17/16 07:01 Triglycerides 134 mg/dL (0-149) 07/12/16 06:20 Cholesterol 125 mg/dL (0-199) 07/12/16 06:20 LDL Cholesterol Direct 59 mg/dL (0-129) 07/12/16 06:20 HDL Cholesterol 20 mg/dL (30-70) L 07/12/16 06:20 Lipase 484 U/L (23-300) H 07/11/16 11:52 Alpha Fetoprotein 3.1 ng/mL (0.0-7.5) 07/13/16 06:31 Prostate Specific Ag 6.63 ng/mL (0.00-4.0) H 07/12/16 20:43 Urine Color (YELLOW) 07/11/16 11:05 Urine Clarity Hazy (Clear) 07/11/16 11:05 Urine pH 5.0 (5.0-8.0) 07/11/16 11:05 Ur Specific [place] 1.017 (1.003-1.030) 07/11/16 11:05 Urine Protein 1+ mg/dL (NEGATIVE) H 07/11/16 11:05 Urine Glucose (UA) Normal mg/dL (Normal) 07/11/16 11:05 Urine Ketones Negative mg/dL (NEGATIVE) 07/11/16 11:05 Urine Blood 1+ (NEGATIVE) H 07/11/16 11:05 Urine Nitrate Positive (NEGATIVE) H 07/11/16 11:05 Urine Bilirubin Negative (NEGATIVE) 07/11/16 11:05 Urine Urobilinogen 4.0 mg/dL (0.2-1.0) 07/11/16 11:05 Ur Leukocyte Esterase 3+ Annabelle/uL (Negative) H 07/11/16 11:05 Urine WBC (Auto) 289 /hpf (0-5) H 07/11/16 11:05 Urine RBC (Auto) 4 /hpf (0-3) H 07/11/16 11:05 Ur Squamous Epith Cells < 1 /hpf (0-5) 07/11/16 11:05 Urine Bacteria Rare (<OCC) 07/11/16 11:05 IgG 856.2 mg/dL (700.0-1600.0) 07/13/16 06:31 IgM 70.4 mg/dL (40.0-230.0) 07/13/16 06:31 KENDRICK 6 Profile Negative (NEGATIVE) 07/13/16 06:31 Anti-Mitochondrial Ab Negative (Negative) 07/13/16 06:31 Anti-Smooth Muscle Ab Negative (Negative) 07/13/16 06:31 Hepatitis A IgM Ab Negative (NEGATIVE) 07/11/16 17:31 Hep Bs Antigen Negative (NEGATIVE) 07/11/16 17:31 Hep B Core IgM Ab Negative (NEGATIVE) 07/11/16 17:31 Hepatitis C Antibody Negative (NEGATIVE) 07/11/16 17:31 - Hospital Course Hospital Course: On initial presentation: Patient is a 75 year old male with past medical history of hypertension , hyperlipidemia, and diabetes mellitus who presents to the ED with dysuria and fever. Patient states symptoms started 1 week ago and include dysuria, foul smelling urine, increased urgency and frequency, fever/chills, and nausea/ vomiting. Patient states fever fluctuated, highest of 103F. Patient states he took acetaminophen for fever which provided relief. Patient states he has been nauseous all week and has had clear liquid emesis every morning for past week. Last vomiting episode was yesterday. Patient states he has been feeling progressively weak over the past 7 days, unable to walk for more than a few minutes at a time. Patient complains of decreased appetite over the same time span. Patient denies headache, dizziness, vision change, shortness of breath, palpitations, chest pain, abdominal pain, hematuria, constipation, diarrhea, and lower extremity swelling. PMD: Dr. Pastrana PMHx: HTN, HLD, DM, thrombocytopenia Meds: losartan/HCTZ 100mg, amlodipine 5mg, metformin 500mg BID Allergies: NDKA PSHx: denies Hospitalizations: denies Social: retired, [facility] [place] [facility] , denies ever tobacco use, drinks 2, 24-oz beers and 2-3 shots rum per day. Last drink was 1 week ago. Denies withdrawal symptoms During hospital course, Cystitis UA: positive nitrates, 3+ leuokocyte esterase, 289 WBC, 4 RBC Urine Culture positive for E. Coli Repeat Urine culture negative Blood culture growing gram negative navjot, organism - E. coli. Patient given stat dose of Gentamicin and initially started on Zosyn for bacteremia but then switched to Rocephin 2 gm IVPB Q24H once E. coli identified bacteremia by ID, Dr. Metcalf (07/14) ID, Dr. Metcalf, consulted. Help appreciated. Urology , Dr. Perales, consulted Elevated PSA PSA elevated 10.9. Per Dr. Perales, patient will require follow-up in his office within 2 weeks following discharge from hospital to have PSA rechecked. KENDRA Was started on Normal Saline IV Improved to baseline Cirrhosis history of alcohol use Patient counseled to stop alcohol use. GI, Dr. Colvin, consulted. AFP, autoimmune serologies, GGT, and fractionate bilirubin was ordered by GI. Triple phase CT of liver obtained. Patient instructed to have bring results of EGD/colonoscopy for review. Results: Total bilirubin 2.0, Direct bilirubin 1.3, GGT 661, ALK Phos 186 Albumin 0.9 AFP 3.1 IgG 856.2, IgM 70.4 - negative Anti-Mitochondrial Ab and Anti-Smooth Muscle Ab - negative Hepatitis panel - negative Platelets 199 Coagulation profile: PT/PTT: 13.2/34 INR 1.2 MRI Abdomen: Suboptimal examination due to patient motion and difficulty with breath hold. Inferior most liver incompletely imaged on post-contrast views. Subtle nodular hepatic contour. No focal hepatic mass identified on this limited study. 10 mm T1 hypo intense and T2 hyperintense T11 vertebral body rounded lesion, indeterminate. Recommend further evaluation with dedicated MRI without and with IV contrast for further characterization. Patient will need outpatient follow- up regarding vertebral body lesions detected on MRI Liver CT triple phase: Nodular hepatic contour compatible with cirrhosis. Hepatic steatosis. Hypoechoic rounded lesion identified in right hepatic lobe on ultrasound is not appreciated on the submitted views, possibly related to focal fatty sparing. Recommend MRI liver protocol for further evaluation and confirmation. Gallstone within gallbladder neck. Bibasilar atelectasis/ fibrosis. Trace bilateral pleural effusions. 18 mm right renal cyst. Bilateral too small to characterize renal hypodensities, statistically likely cysts. Enlarged heterogenous prostate gland. Abdominal Ultrasound: Probable hepatic cirrhosis. No hepatomegaly. 3.0 cm hypoechoic solid mass in right lobe of liver suspicious for hepatocellular neoplasm. Patient will need follow-up for Liver cirrhosis with Dr. Marii ABBOTT. Rosacea/Sebopsoriasis Ketoconazole cream to affected areas of face BID Lidex 0.05% solution to scalp BID. Hydrocortisone 2.5 % cream to face HS Patient informed of rosacea triggers including coffee, alcohol, spicy food, and heat KENDRICK - negative Hypertension Normotensive Continued on home meds- Losartan 100mg po daily HCTZ 12.5mg po daily Amlodipine 5mg po daily Diabetes Mellitus Glucose controlled Hemoglobin a1c 6.3 Metformin 500mg BID discontinued due to liver cirrhosis While in hospital - Novolog 5 units SC TIDAC and Lantus 9 units SC HS Accuchecks Discharged on Januvia 25 mg po daily. Instructed patient to follow-up with primary care physician regarding glucose control. Hyperlipidemia Lipid panel: normal, however, low HDL of 20 Started on Lovaza 1 gm po BID during hospital course. Prophylaxis Heparin 5000 SC Q12 SCD Pepcid 20 mg po daily Dispo Patient to follow-up with primary care physician within one week of discharge from the hospital. Patient to complete 14 day course of oral antibiotic therapy for blood infection. Patient to discontinue using Metformin for diabetes management due to liver cirrhosis. Patient to resume all other home medications as previously prescribed. Patient to be started on Januvia for Diabetes Mellitus management. Patient to continue using Ketoconazole cream to affected areas of face twice daily until facial rash improved. Patient to also continue use of Lidex 0.05% solution to hair BID for one week. Patient to follow-up with [facility] (Dr. Colvin) within one week of discharge from the hospital. Patient to follow-up with Urologist (Dr. Trivedi) within one week of discharge from hospital. Patient to have repeat PSA. Discharge Instructions: Patient to follow-up with primary care physician, Dr. Pastrana, within one week of discharge from the hospital. Patient to complete 14 day course of oral antibiotic therapy for blood infection. Patient to follow-up with Dr. Kaplan to have blood culture checked in office. Patient to discontinue using Metformin for diabetes management due to liver cirrhosis. Patient to resume all other home medications as previously prescribed. Patient educated to no longer drink alcohol due to liver cirrhosis. Patient instructed to take Ciprofloxacin 500 mg tab by mouth twice daily for 13 days (26 pills) Patient to be started on Januvia 25 mg tab by mouth daily for Diabetes Mellitus management. Patient to continue using Ketoconazole cream to affected areas of face twice daily until facial rash improved. P Patient to also continue use of Lidex 0.05% solution to scalp twice daily for one week. Discontinue use for two weeks. Restart as directed for an additional two weeks if needed. Patient to continue use of Hydrocortisone 2.5% cream at night to face for one week. Discontinue use for two weeks. Restart as directed for an additional two weeks if needed. Patient to follow-up with [employer] [facility] (Dr. Colvin) within one week of discharge from the hospital. Patient will need to have liver function tests monitored by gastroenterology. Patient to follow-up with Urologist (Dr. Trivedi) within one week of discharge from hospital. Patient to have repeat PSA. Patient given detailed instructions at bedside with present. Patient understands and agrees. Please note this is a summary of the hospital course. For full details, please see patient chart. - Date & Time of H&P Date of H&P: 07/11/16 Time of H&P: 18:20 Discharge Exam - Head Exam Head Exam: ATRAUMATIC, NORMAL INSPECTION, NORMOCEPHALIC - Eye Exam Eye Exam: EOMI Additional comments: arcus sinilis - ENT Exam ENT Exam: Mucous Membranes Moist - Neck Exam Neck exam: Full Rom, Normal Inspection - Respiratory Exam Respiratory Exam: Clear to PA & Lateral, NORMAL BREATHING PATTERN, UNREMARKABLE - Cardiovascular Exam Cardiovascular Exam: +S1, +S2. absent: Tachycardia - GI/Abdominal Exam GI & Abdominal Exam: Normal Bowel Sounds, Organomegaly, Unremarkable. absent: Distended, Guarding - Extremities Exam Extremities exam: pedal pulses present - Back Exam Back exam: absent: CVA tenderness (L), CVA tenderness (R), vertebral tenderness - Neurological Exam Neurological exam: Alert, CN II-XII Intact, Normal Gait, Oriented x3 - Psychiatric Exam Psychiatric exam: Normal Affect, Normal Mood - Skin Additional comments: mild erythema with superficial scaling to malar cheeks, glabella and chin white scale to scalp Discharge Plan - Discharge Medications Prescriptions: amLODIPine [Norvasc] 5 mg PO DAILY #30 Ciprofloxacin HCl [Cipro] 500 mg PO BID #26 tablet Fluocinonide [Lidex 0.05% Topical Solution] 0.05 % TOP BID #1 bottle Hydrocortisone [Cortizone 2.5%] 2.5 % TOP BID #20 gm Ketoconazole 2% Cr [Nizoral] 2 % TOP BID PRN #15 gm PRN Reason: Rash SITagliptin [Januvia] 25 mg PO DAILY #30 tab - Follow Up Plan Condition: GOOD Disposition: HOME/ ROUTINE Instructions: Ciprofloxacin (By mouth), Hydrocortisone (On the skin), Sitagliptin (By mouth), Diabetic Foot Care (DC), Acute Pyelonephritis (DC), Meal Planning with Diabetes Exchanges (DC) Additional Instructions: Patient to follow-up with primary care physician, Dr. Pastrana, within one week of discharge from the hospital. Patient to complete 14 day course of oral antibiotic therapy for blood infection. Patient to follow-up with Dr. Pastrana to have blood culture checked in office. Patient to discontinue using Metformin for diabetes management due to liver cirrhosis. Patient to resume all other home medications as previously prescribed. Patient educated to no longer drink alcohol due to liver cirrhosis. Patient instructed to take Ciprofloxacin 500 mg tab by mouth twice daily for 13 days (26 pills) Patient to be started on Januvia 25 mg tab by mouth daily for Diabetes Mellitus management. Patient to continue using Ketoconazole cream to affected areas of face twice daily until facial rash improved. P Patient to also continue use of Lidex 0.05% solution to scalp twice daily for one week. Discontinue use for two weeks. Restart as directed for an additional two weeks if needed. Patient to continue use of Hydrocortisone 2.5% cream at night to face for one week. Discontinue use for two weeks. Restart as directed for an additional two weeks if needed. Patient to follow-up with [employer] [facility] (Dr. Colvin) within one week of discharge from the hospital. Patient will need to have liver function tests monitored by gastroenterology. Patient to follow-up with Urologist (Dr. Trivedi) within one week of discharge from hospital. Patient to have repeat PSA. Patient given detailed instructions at bedside with present. Patient understands and agrees. Referrals: Dean Perales MD [Staff Provider] - Merlyn Colvin MD [Staff Provider] - <Luis Mtz - Last Filed: 08/16/16 10:42> Provider - Provider Date of Admission: 07/11/16 12:33 Attending physician: Jignesh Montgomery MD Hospital Course - Lab Results Lab Results: Micro Results 07/16/16 12:23 Blood Blood Culture - Final NO GROWTH AFTER 5 DAYS 07/16/16 12:23 Blood Gram Stain - Final TEST NOT PERFORMED 07/16/16 13:30 Blood Blood Culture - Final NO GROWTH AFTER 5 DAYS 07/16/16 13:30 Blood Gram Stain - Final TEST NOT PERFORMED 07/15/16 07:20 Blood-Venous Blood Culture - Final NO GROWTH AFTER 5 DAYS 07/15/16 07:20 Blood-Venous Gram Stain - Final TEST NOT PERFORMED 07/15/16 07:20 Blood-Venous Blood Culture - Final NO GROWTH AFTER 5 DAYS 07/15/16 07:20 Blood-Venous Gram Stain - Final TEST NOT PERFORMED 07/11/16 14:59 Urine Urine Culture - Final No Growth (<1,000 CFU/ML) Most Recent Lab Values WBC 7.9 K/uL (4.8-10.8) 07/17/16 07:01 RBC 3.74 Mil/uL (4.40-5.90) L 07/17/16 07:01 Hgb 12.5 g/dL (12.0-18.0) 07/17/16 07:01 Hct 36.5 % (35.0-51.0) 07/17/16 07:01 MCV 97.5 fL (80.0-94.0) H 07/17/16 07:01 MCH 33.5 pg (27.0-31.0) H 07/17/16 07:01 MCHC 34.3 g/dL (33.0-37.0) 07/17/16 07:01 RDW 13.6 % (11.5-14.5) 07/17/16 07:01 Plt Count 221 K/uL (130-400) 07/17/16 07:01 MPV 10.9 fL (7.2-11.7) 07/17/16 07:01 Neut % (Auto) 65.6 % (50.0-75.0) 07/17/16 07:01 Lymph % (Auto) 19.3 % (20.0-40.0) L 07/17/16 07:01 [place] % (Auto) 8.8 % (0.0-10.0) 07/17/16 07:01 Eos % (Auto) 5.6 % (0.0-4.0) H 07/17/16 07:01 Baso % (Auto) 0.7 % (0.0-2.0) 07/17/16 07:01 Neut # 5.2 K/uL (1.8-7.0) 07/17/16 07:01 Lymph # 1.5 K/uL (1.0-4.3) 07/17/16 07:01 [place] # 0.7 K/uL (0.0-0.8) 07/17/16 07:01 Eos # 0.4 K/uL (0.0-0.7) 07/17/16 07:01 Baso # 0.1 K/uL (0.0-0.2) 07/17/16 07:01 Neutrophils % (Manual) 81 % (50-75) H 07/12/16 06:20 Band Neutrophils % 5 % (0-2) H 07/12/16 06:20 Lymphocytes % (Manual) 8 % (20-40) L 07/12/16 06:20 Monocytes % (Manual) 6 % (0-10) 07/12/16 06:20 Basophils % (Manual) 1 % (0-2) 07/11/16 11:52 Platelet Estimate Normal (NORMAL) 07/12/16 06:20 Large Platelets Present 07/11/16 11:52 RBC Morphology Normal 07/12/16 06:20 PT 13.2 SECONDS (9.7-12.2) H 07/17/16 07:01 INR 1.2 07/17/16 07:01 APTT 34 SECONDS (21-34) 07/17/16 07:01 Sodium 139 mmol/L (132-148) 07/17/16 07:01 Potassium 4.4 mmol/L (3.6-5.2) 07/17/16 07:01 Chloride 105 mmol/L (98-107) 07/17/16 07:01 Carbon Dioxide 21 mmol/L (22-30) L 07/17/16 07:01 Anion Gap 17 (10-20) 07/17/16 07:01 BUN 18 mg/dL (9-20) 07/17/16 07:01 Creatinine 1.1 MG/DL (0.8-1.5) 07/17/16 07:01 Est GFR ( Amer) > 60 07/17/16 07:01 Est GFR (Non-Af Amer) > 60 07/17/16 07:01 POC Glucose (mg/dL) 239 mg/dL (65-110) H 07/17/16 16:11 Random Glucose 122 mg/dL (75-110) H 07/17/16 07:01 Hemoglobin A1c 6.3 % (4.2-6.5) 07/12/16 06:20 Calcium 8.8 mg/dl (8.6-10.4) 07/17/16 07:01 Magnesium 2.2 mg/dL (1.6-2.3) 07/17/16 07:01 Total Bilirubin 1.0 mg/dL (0.2-1.3) 07/17/16 07:01 Direct Bilirubin 1.3 mg/dL (0.0-0.4) H 07/13/16 06:31 GGT 661 U/L (8-78) H 07/13/16 06:31 AST 75 U/L (17-59) H 07/17/16 07:01 ALT 104 U/L (21-72) H 07/17/16 07:01 Alkaline Phosphatase 253 U/L (38-126) H D 07/17/16 07:01 Total Protein 7.4 g/dL (6.3-8.3) 07/17/16 07:01 Albumin 3.5 g/dL (3.5-5.0) 07/17/16 07:01 Globulin 3.9 gm/dL (2.2-3.9) 07/17/16 07:01 Albumin/Globulin Ratio 0.9 (1.0-2.1) L 07/17/16 07:01 Triglycerides 134 mg/dL (0-149) 07/12/16 06:20 Cholesterol 125 mg/dL (0-199) 07/12/16 06:20 LDL Cholesterol Direct 59 mg/dL (0-129) 07/12/16 06:20 HDL Cholesterol 20 mg/dL (30-70) L 07/12/16 06:20 Lipase 484 U/L (23-300) H 07/11/16 11:52 Alpha Fetoprotein 3.1 ng/mL (0.0-7.5) 07/13/16 06:31 Prostate Specific Ag 6.63 ng/mL (0.00-4.0) H 07/12/16 20:43 Urine Color (YELLOW) 07/11/16 11:05 Urine Clarity Hazy (Clear) 07/11/16 11:05 Urine pH 5.0 (5.0-8.0) 07/11/16 11:05 Ur Specific [place] 1.017 (1.003-1.030) 07/11/16 11:05 Urine Protein 1+ mg/dL (NEGATIVE) H 07/11/16 11:05 Urine Glucose (UA) Normal mg/dL (Normal) 07/11/16 11:05 Urine Ketones Negative mg/dL (NEGATIVE) 07/11/16 11:05 Urine Blood 1+ (NEGATIVE) H 07/11/16 11:05 Urine Nitrate Positive (NEGATIVE) H 07/11/16 11:05 Urine Bilirubin Negative (NEGATIVE) 07/11/16 11:05 Urine Urobilinogen 4.0 mg/dL (0.2-1.0) 07/11/16 11:05 Ur Leukocyte Esterase 3+ Annabelle/uL (Negative) H 07/11/16 11:05 Urine WBC (Auto) 289 /hpf (0-5) H 07/11/16 11:05 Urine RBC (Auto) 4 /hpf (0-3) H 07/11/16 11:05 Ur Squamous Epith Cells < 1 /hpf (0-5) 07/11/16 11:05 Urine Bacteria Rare (<OCC) 07/11/16 11:05 IgG 856.2 mg/dL (700.0-1600.0) 07/13/16 06:31 IgM 70.4 mg/dL (40.0-230.0) 07/13/16 06:31 KENDRICK 6 Profile Negative (NEGATIVE) 07/13/16 06:31 Anti-Mitochondrial Ab Negative (Negative) 07/13/16 06:31 Anti-Smooth Muscle Ab Negative (Negative) 07/13/16 06:31 Hepatitis A IgM Ab Negative (NEGATIVE) 07/11/16 17:31 Hep Bs Antigen Negative (NEGATIVE) 07/11/16 17:31 Hep B Core IgM Ab Negative (NEGATIVE) 07/11/16 17:31 Hepatitis C Antibody Negative (NEGATIVE) 07/11/16 17:31 Attending/Attestation - Attestation I have personally seen and examined this patient.: Yes I have fully participated in the care of the patient.: Yes I have reviewed all pertinent clinical information, including history, physical exam and plan: Yes Notes (Text): Patient seen and examined with the resident. Agree with the resident's evaluation, assessment and plan. Cystitis Elevated PSA PSA elevated 10.9. Per Dr. Perales, patient will require follow-up in his office within 2 weeks following discharge from hospital to have PSA rechecked. Acute renal failure - resolved. Cirrhosis history of alcohol use Patient counseled to stop alcohol use.
--- NOTE | 2016-07-18 18:14 | PQF SEPSIS ---
This form is a permanent part of the medical record Clarification of your documentation is requested to better reflect the severity of illness and intensity of treatment of your patient SEPSIS V/S BACTEREMIA PLEASE, CLARIFY IF SEPSIS WAS RULED IN OR RULED OUT. Indicators present [X] Temp < 96.8 or > 100.4 [] WBC count > 12,000/mm3 or <000/mm3 or 10% immature neutrophils [] Heart Rate > 90 [] Respiratory Rate > 20 [X] Fever or hypothermia [X] Chills [X] Positive blood cultures [] Hypotension [] Metabolic acidosis (Elevated lactate level, anion gap or reduced blood pH) [] Acute confusion /Altered Mental Status [] Shock [X] Other: [ UTI- CYSTITIS (E. COLI ) with BACTEREMIA - BLOOD C/S + FOR GRAM NEG. RODS, KENDRA , LIVER CIRRHOSIS ] Location in the medical record that reflects the above clinical findings: [P. NOTES, CONSULTS] Treatment Provided: [ANTIBIOTICS] PHYSICIAN'S RESPONSE Based on your medical judgment of the clinical indicators outlined above, are you treating this patient for a known or suspected: [X] Sepsis / Septicemia Please specify organism if known [] [] SIRS (Systemic Inflammatory Response Syndrome) [] Severe Sepsis (Sepsis with Associated Organ Dysfunction) [] Fever of Unknown Origin [] Other, please indicate: [] [] If Unable to Determine, please check the box, sign and date. Present On Admission (POA) Indicator: [x] Present at the time of admission [] Not present at the time of admission [] Clinically Undetermined In responding to this query, please exercise your independent professional judgment. The fact that a question is asked does not imply that any particular answer is desired or expected. Thank you for your clarification on this documentation. If you have any questions please call:[[phone] ] * Thank you, [Maris Shipman [facility], [facility] ] photo editor CLAUDIA
== END 2016-07-17 16:50 | disposition home or self-care (01) | DRG 872 ==
LOC: C.ER 10:19 → C.9E 12:33 → C.3T 13:15
PROVIDERS: ADMIT Internal Medicine; ATTEND Internal Medicine
DX: A41.9 Sepsis, unspecified organism (principal); N30.00 Acute cystitis without hematuria; N17.9 Acute kidney failure, unspecified; D68.9 Coagulation defect, unspecified; K76.6 Portal hypertension; D69.6 Thrombocytopenia, unspecified; E88.09 Other disorders of plasma-protein metabolism, not elsewhere classified; B96.20 Unspecified Escherichia coli [E. coli] as the cause of diseases classified elsewhere; K70.30 Alcoholic cirrhosis of liver without ascites; R16.0 Hepatomegaly, not elsewhere classified; E11.9 Type 2 diabetes mellitus without complications; I10 Essential (primary) hypertension; F10.10 Alcohol abuse, uncomplicated; K80.80 Other cholelithiasis without obstruction; L40.8 Other psoriasis; L71.9 Rosacea, unspecified; E78.5 Hyperlipidemia, unspecified; R97.20 Elevated prostate specific antigen [PSA]; Z79.84 Long term (current) use of oral hypoglycemic drugs

== ENCOUNTER → 2016-08-19 | Day surgery (SDC) | payer MEDICARE ==
[~2016-08-19] MED LIST: Lactated Ringer's 500 ML IV ONE; Propofol 10 mg/ml Inj (20 ML) ONE
[2016-08-19 09:48] VITALS: BMI 21.6
[2016-08-19 11:31] VITALS: TEMP 96.8
[2016-08-19 12:10] VITALS: BP 126/63; PULSE 53; RESP 12; O2SAT 99
== END | disposition home or self-care (01) ==
LOC: C.ENDO 09:09
PROVIDERS: ATTEND Internal Medicine Gastroenterology
DX: K70.30 Alcoholic cirrhosis of liver without ascites (principal); Z12.11 Encounter for screening for malignant neoplasm of colon; K64.8 Other hemorrhoids; K57.30 Diverticulosis of large intestine without perforation or abscess without bleeding; K74.60 Unspecified cirrhosis of liver; B37.9 Candidiasis, unspecified; K25.9 Gastric ulcer, unspecified as acute or chronic, without hemorrhage or perforation
CPT/HCPCS: 43239; 45378; 82948; 88104; 88305; 88342; J2704; J3010; J7120

== ENCOUNTER 2017-07-15 10:44 | Emergency (ER) | payer MEDICARE ==
[2017-07-15 10:52] VITALS: BMI 26.1
[2017-07-15 10:58] VITALS: BP 153/72; PULSE 65; RESP 18; TEMP 97.6; O2SAT 98
[2017-07-15] MEDS ORDERED: Tmp-Smz 800 mg-160 mg DS Tab PO STA (11:31)
[2017-07-15] MEDS ORDERED: Tmp-Smz 800 mg-160 mg DS Tab ONE (11:36)
--- NOTE | 2017-07-15 11:37 | C.PDOC ---
History Of Present Illness 76 year old male presents to the ED with complaints of a rash to the right ankle for 1 month. Patient states that he is not applying any cream. He denies any precipitant out of the area. Patient is diabetic and compliant with his medication. He denies any fever, chills, or evidence of an animal bite. Time Seen by Provider: 07/15/17 11:16 Chief Complaint (Nursing): Lower Extremity Problem/Injury History Per: Patient History/Exam Limitations: no limitations Onset/Duration Of Symptoms: Days Current Symptoms Are (Timing): Still Present Past Medical History Reviewed: Historical Data, Nursing Documentation, Vital Signs Vital Signs: Last Vital Signs Temp 97.6 F 07/15/17 10:58 Pulse 65 07/15/17 10:58 Resp 18 07/15/17 10:58 BP 153/72 H 07/15/17 10:58 Pulse Ox 98 07/15/17 12:33 - Medical History PMH: Diabetes, HTN, Hypercholesterolemia, Hyperlipidemia Denies: Colonic Polyps, Fractures Surgical History: Denies: Endoscopy Family History: States: No Known Family Hx - Social History Hx Alcohol Use: Yes Hx Substance Use: No - Immunization History Hx Tetanus Toxoid Vaccination: No Hx Influenza Vaccination: No Hx Pneumococcal Vaccination: No Review Of Systems Except As Marked, All Systems Reviewed And Found Negative. Skin: Positive for: Rash Physical Exam - Physical Exam Appears: Well, Non-toxic, No Acute Distress Skin: Rash (erythematous macular circular to the right lateral malleolus with satellite lesions and an early suprainfection. No abscess) Eye(s): bilateral: Normal Inspection Pulses: Left Dorsalis Pedis: Normal, Right Dorsalis Pedis: Normal Neurological/Psych: Oriented x3, Normal Speech ED Course And Treatment O2 Sat by Pulse Oximetry: 98 (RA) Pulse Ox Interpretation: Normal Medical Decision Making Medical Decision Making: IMPRESSION: Cellulitis Tinea Corporis Plan --Glucose, POC --Bactrim DS Tab Patient was medicated and advised to follow-up with PMD in 2 days. Disposition Counseled Patient/Family Regarding: Studies Performed, Diagnosis, Need For Followup, Rx Given - Disposition Referrals: Aliya Aguero [Staff Provider] - Disposition: HOME/ ROUTINE Disposition Time: 11:34 Condition: STABLE Additional Instructions: follow up with your doctor in 2 days call to make an appointment take medications as prescribed return to ER if symptoms worsens or progress Prescriptions: Clotrimazole/Betamethasone [Lotrisone] 1 appl TOP BID #45 gm Sulfamethoxazole/Trimethoprim [Bactrim DS 800 mg-160 mg] 1 tab PO BID #20 tab Instructions: Cellulitis (Skin Infection), Adult (DC) Forms: Gen Discharge Inst Marshallese, [employer] (Marshallese) Print Language: CHILEAN - Clinical Impression Clinical Impression: Cellulitis - Scribe Statement The provider has reviewed the documentation as recorded by the Lisa Jacinto Provider Attestation: All medical record entries made by the Lisa were at my direction and personally dictated by me. I have reviewed the chart and agree that the record accurately reflects my personal performance of the history, physical exam, medical decision making, and the department course for this patient. I have also personally directed, reviewed, and agree with the discharge instructions and disposition.
== END 2017-07-15 11:55 | disposition home or self-care (01) ==
LOC: C.ER 10:44
DX: L03.115 Cellulitis of right lower limb (principal); B35.4 Tinea corporis